=== PATIENT | male | born 1955 | race Caucasian/White ===

== ENCOUNTER → 2018-01-18 10:39 | Outpatient (CLI) | payer BC, SELFPAY ==
--- NOTE | 2018-01-18 10:49 | XR_ITS ---
XR hand RT min 3V HISTORY: Arthritis, pain ITS.REASON: PAIN IN FINGER ORDERING PHYSICIAN: Hardeep Stevens MD PATIENT AGE: 62 years COMPARISON: None FINDINGS: No fracture or dislocation. No lytic or blastic change. There is normal mineralization.. The joint spaces are well-preserved. No significant degenerative/arthritic changes. No erosive changes evident.. IMPRESSION: Negative, no acute finding
--- NOTE | 2018-01-18 10:49 | XR_ITS ---
XR shoulder LT min 2V HISTORY: ITS.REASON: LT SHOULDER PAIN ORDERING PHYSICIAN: Hardeep Stevens MD PATIENT AGE: 62 years Comparison: None FINDINGS: No fracture or dislocation. No lytic or blastic change. There is normal mineralization. The joint spaces are well-preserved. No significant degenerative/arthritic changes. No erosive changes evident. IMPRESSION: Negative, no acute finding
--- NOTE | 2018-01-18 10:49 | XR_ITS ---
XR hand LT min 3V HISTORY: Arthritis, pain ITS.REASON: PAIN IN FINGERS ORDERING PHYSICIAN: Hardeep Stevens MD PATIENT AGE: 62 years COMPARISON: None FINDINGS: No fracture or dislocation. No lytic or blastic change. There is normal mineralization.. The joint spaces are well-preserved. No significant degenerative/arthritic changes. No erosive changes evident.. IMPRESSION: Negative, no acute finding
== END ==
PROVIDERS: PCP Family Medicine; Visit Provider Family Medicine
DX: M25.512 Pain in left shoulder (principal); M79.646 Pain in unspecified finger(s)
CPT/HCPCS: 73030; 73130

== ENCOUNTER → 2022-06-02 10:48 | Outpatient (CLI) | payer MEDICARE, BC, SELFPAY ==
[2022-06-02 11:34] LABS: Basophils # 0.1 K/mm3 (0-0.2); Basophils % 0.9 % (0.1-2.0); Eosinophils # 0.3 K/mm3 (0.0-0.4); Eosinophils % 5.9 % (0.1-12.0); Hematocrit 48.8 % (42.0-52.0); Hemoglobin 15.7 g/dL (14.1-18.0); Lymphocytes # 1.6 K/mm3 (0.7-4.5); Lymphocytes % 28.5 % (10-50); Mean Corpuscular HGB Conc 32.1 g/dL (31.8-35.4); Mean Corpuscular Hemoglobin 31.3 pg (27.0-31.2); Mean Corpuscular Volume 97.5 fl (80-94); Mean Platelet Volume 7.8 fl (7.4-10.4); Monocytes # 0.5 K/mm3 (0.1-1.0); Monocytes % 8.4 % (1.7-9.3); Neutrophils # 3.2 K/mm3 (1.8-7.8); Neutrophils % 56.4 % (37.0-80.0); Platelet Count 250 K/mm3 (142-424); Red Blood Count 5.01 M/mm3 (4.60-6.20); Red Cell Distribution Width 13.6 % (11.5-17.5); White Blood Count 5.6 K/mm3 (4.8-10.8)
[2022-06-02 12:05] LABS: Erythrocyte Sedimentation Rate 12 mm/hr (0-20)
[2022-06-02 12:06] LABS: Alanine Aminotransferase 22 U/L (12-78); Albumin Level 4.1 g/dl (3.5-5.0); Albumin/Globulin Ratio 1.5 (1.1-1.8); Alkaline Phosphatase 72 U/L (38-126); Anion Gap 7.1 mEq/L (5-15); Aspartate Amino Transferase 40 U/L (17-59); Bilirubin,Total 0.7 mg/dl (0.2-1.3); Blood Urea Nitrogen 7 mg/dl (9-20); Carbon Dioxide 30 mmol/L (22.0-30.0); Chloride 106 mmol/L (98-107); Estimated Glomerular Filt Rate 134 ml/min (>60); GFR (African American) 163 ML/MIN (>60); Globulin 2.7 g/dL (1.3-3.2); Glucose 78 mg/dl (74-100); Potassium 4.1 mmoL/L (3.5-5.1); Sodium 139 mmol/L (136-145); Total Protein,Serum 6.8 g/dl (6.3-8.2)
[2022-06-02 12:11] LABS: C-Reactive Protein 0.6 mg/L (0-4)
== END ==
PROVIDERS: PCP Family Medicine; Visit Provider Nurse Practitioner Family
DX: M05.9 Rheumatoid arthritis with rheumatoid factor, unspecified (principal); Z51.81 Encounter for therapeutic drug level monitoring
CPT/HCPCS: 36415; 80053; 85025; 85651; 86140

== ENCOUNTER 2023-08-24 08:54 | Outpatient (CLI) | payer MEDICARE, BC, SELFPAY ==
[2023-08-24 09:30] LABS: Basophils % 0.8 % (0.1-2.0); Eosinophils # 0.1 K/mm3 (0.0-0.4); Eosinophils % 2.4 % (0.1-12.0); Hematocrit 42.6 % (42.0-52.0); Hemoglobin 13.8 g/dL (14.1-18.0); Lymphocytes # 1.7 K/mm3 (0.7-4.5); Lymphocytes % 33.8 % (10-50); Mean Corpuscular HGB Conc 32.5 g/dL (31.8-35.4); Mean Corpuscular Hemoglobin 32.5 pg (27.0-31.2); Mean Corpuscular Volume 100.3 fl (80-94); Mean Platelet Volume 7.9 fl (7.4-10.4); Monocytes # 0.4 K/mm3 (0.1-1.0); Monocytes % 8.3 % (1.7-9.3); Neutrophils # 2.7 K/mm3 (1.8-7.8); Neutrophils % 54.6 % (37.0-80.0); Platelet Count 215 K/mm3 (142-424); Red Blood Count 4.25 M/mm3 (4.60-6.20); Red Cell Distribution Width 14.1 % (11.5-17.5)
[2023-08-24 09:50] LABS: Alanine Aminotransferase 16 U/L (12-78); Albumin Level 3.6 g/dl (3.5-5.0); Albumin/Globulin Ratio 1.4 (1.1-1.8); Alkaline Phosphatase 78 U/L (38-126); Anion Gap 6.1 mEq/L (5-15); Aspartate Amino Transferase 40 U/L (17-59); Bilirubin,Total 0.6 mg/dl (0.2-1.3); Blood Urea Nitrogen 7 mg/dl (9-20); Calcium 9.3 mg/dl (8.4-10.2); Carbon Dioxide 29 mmol/L (22.0-30.0); Chloride 110 mmol/L (98-107); Estimated Glomerular Filt Rate 134 ml/min (>60); GFR (African American) 162 ML/MIN (>60); Globulin 2.5 g/dL (1.3-3.2); Glucose 86 mg/dl (74-100); Potassium 3.1 mmoL/L (3.5-5.1); Sodium 142 mmol/L (136-145); Total Protein,Serum 6.1 g/dl (6.3-8.2)
[2023-08-24 09:55] LABS: C-Reactive Protein 1.7 mg/L (0-4)
[2023-08-24 10:02] LABS: Erythrocyte Sedimentation Rate 23 mm/hr (0-20)
== END 2023-08-24 23:59 | disposition home or self-care (01) ==
LOC: LAB 08:55
PROVIDERS: PCP Family Medicine; Visit Provider Nurse Practitioner Family
DX: M05.79 Rheumatoid arthritis with rheumatoid factor of multiple sites without organ or systems involvement (principal); Z79.899 Other long term (current) drug therapy
CPT/HCPCS: 36415; 80053; 85025; 85651; 86140

== ENCOUNTER 2023-10-06 08:44 | Outpatient (CLI) | payer MEDICARE, BC, SELFPAY ==
--- NOTE | 2023-10-06 08:46 | CA_ITS ---
APPROVED REPORT EXAM: Comprehensive 2D, Doppler, and color-flow Echocardiogram Skin Washer: Viviana Alvarez RVT Ht: 5 ft 8 in Wt: 112lbs BSA: 1.60 BP: 160/76 mmHg Indications: A-FIB,HTN 2D Dimensions LA Volume 24.10 mL LA Volume Index 15.06 mL/m2 (M/F) 16-34 M-Mode Dimensions RVDd 1.61 cm (0.9-2.6) LA Diam 3.87 cm (1.9-4.0) LVDd 4.58 cm (3.5-5.7) LVDs 3.26 cm (3.5-5.7) IVSd 0.57 cm (0.6-1.1) PWd 0.57 cm (0.6-1.1) EF (Teich) 55.60% FS 28.80% EDV (Teich) 96.30 mL TAPSE 1.79 (<1.7) ESV (Teich) 42.80 mL LV Diastology E Decel Time 200 (160-240 msec) E/A Ratio 4.1 Aortic Valve CARLITO Index 1.98 cm2/m2 AoV Peak Young. 100.0 (50-130 cm/s) AO Peak GR. 4.00 mmHg AO Mean GR. 2.20 (<5 mmHg) AO VTI 17.6 (18-25 cm) CARLITO (VTI) 3.25 (2.5-4.5 cm2) Mitral Valve MV E Max Young. 99.0 (40-130 cm/s) MV A Velocity 24.0 (40-130 cm/s) E/A Ratio 4.10 MV PHT 59.0 ms Pulmonary Valve PV Peak Velocity 77.0 (50-150 cm/s) Tricuspid Valve TR P. Velocity 294.00 cm/s RAP Estimate 10.00 mmHg RVSP 44.50 mmHg Left Ventricle The left ventricle is normal size. The left ventricular systolic function is normal. The left ventricular ejection fraction is within the normal range. Proximal septal thickening is noted. There is normal LV segmental wall motion. Diastolic function is indeterminate. LVEF is 55%. Right Ventricle Right ventricle is mildly dilated. Right ventricle is mildly hypokinetic. Atria The left atrium size is normal. The right atrium size is normal. There is no Doppler evidence of interatrial shunt. Aortic Valve The aortic valve is mildly thickened. There is no aortic valvular stenosis. Trace aortic regurgitation. Mitral Valve The mitral valve is mildly thickened. No evidence of mitral valve stenosis. Moderate mitral regurgitation. Tricuspid Valve The tricuspid valve leaflets are thin and pliable. Mild to moderate tricuspid regurgitation. RVSP is 40-45 mmHg. Pulmonic Valve The pulmonary valve is normal in structure. Trace pulmonic regurgitation. Great Vessels The aortic root is normal in size. The ascending aorta is not well-visualized. IVC is normal in size and collapses >50% with inspiration. Pericardium There is no pericardial effusion. Other Information Study Quality: Fair Conclusion Normal LV systolic function. Mild RV dilation with mild reduction in RV function. Moderate MR. Mild to moderate TR. Elevated RVSP 40-45 mmHg. Electronically signed by : Tiffany Manzo MD 10/12/2023 22:31:23
== END 2023-10-06 23:59 | disposition home or self-care (01) ==
LOC: RT 08:44
PROVIDERS: PCP Family Medicine; Visit Provider Family Medicine
DX: I34.0 Nonrheumatic mitral (valve) insufficiency (principal); I36.1 Nonrheumatic tricuspid (valve) insufficiency; I48.91 Unspecified atrial fibrillation; R94.31 Abnormal electrocardiogram [ECG] [EKG]
CPT/HCPCS: 93306

== ENCOUNTER 2024-01-15 10:23 | Outpatient (CLI) | payer MEDICARE, BC, SELFPAY ==
--- OUTSIDE RECORDS SUMMARY | 2024-01-15 10:28 | XMS_ITS | Encounter Summary ---
Author Organization [facility] Address [address] [id number] Care Team Providers Care Abrasives Sales Representative Name Role Phone Hardeep Stevens MD Primary Care Provider + Reason for Visit * Reason Comments FURNACE FITTER / establish PCP COPD Hyperlipidemia elevated BP w/o dx of HTN Encounter Details Date Type Department Care Team (Late st Contact Info) Description 09/30/2021 11:00 AM EDT Office Visit [facility] [address] [place] [address] Hardeep Stevens MD [address] [place] [address] Initial Medicare annual wellness visit (Primary Dx); Pulmonary emphysema, unspecified emphysema type; 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; Hypercholesterolemia; BMI less than 19,adult; Negative depression screening; Screening declined by patient; Elevated blood pressure reading without diagnosis of hypertension Social History Tobacco Use Types Packs/Day Years Used Date Smoking Tobacco: Every Day Cigarettes Smokeless Tobacco: Never Tobacco Cessation:Ready to Q uit: No Alcohol Use Standard Drinks/Week Comments Yes 0 (1 standard drink = 0.6 oz pur e alcohol) PHQ-2 Answer Date Recorded Retired PHQ-9: Brief Depression Severity Measure Score 0 09/30/2021 Sex and Gender Information Value Date Recorded Sex Assigned at Not on file Legal Sex Male 11:48 AM EDT Gender Identity Not on file Sexual Orientation Not on file documented as of this encounter Last Filed Vital Signs Vital Sign Reading Time Taken Comments Blood Pressure 180/80 09/30/2021 10:46 AM EDT Pulse 90 09/30/2021 10:46 AM EDT Temperature 36.8 ??C (98.2 ??F) 09/30/2021 10:46 AM E DT Respiratory Rate 20 09/30/2021 10:46 AM EDT Oxygen Saturation 95% 09/30/2021 10:46 AM EDT Inhaled Oxygen Concentration - - Weight 48.4 kg (106 lb 9.6 oz) 09/30/2021 10:46 AM EDT Height 172.7 cm (5' 8 ) 09/30/2021 10:46 AM EDT Body Mass Index 16.21 09/30/2021 10:46 AM EDT documented in this encounter Patient Instructions * Attachments The following attachments cannot be sent through Care Everywhere. * Preventive Care 65 Years and Older Male ([place]) documented in this encounter Progress Notes * Hardeep Stevens MD - 09/30/2021 11:00 AM EDT The ABCs of the Annual Wellness Visit Initial Medicare Wellness Visit Chief Complaint Patient presents with ??? FURNACE FITTER / establish PCP ??? COPD ??? Hyperlipidemia ??? elevated BP w/o dx of HTN Subjective History of Present Illness: Umang Fernandes is a 66 y.o. male who presents for an Initial Medicare Wellness Visit. The following portions of the patient's history were reviewed and updated as appropriate: allergies, current medications, past family history, past medical history, past social history, past surgical history and problem list. Compared to one year ago, the patient feels his physical health is the same. Compared to one year ago, the patient feels his mental health is the same. Recent Hospitalizations: He was not admitted to the hospital during the last year. Current Medical Providers: Patient Care Team: Hardeep Stevens MD as PCP - General (Family Medicine) Josse Perez, DO as Consulting Physician (Rheumatology) Outpatient Medications Prior to Visit Medication Sig Dispense Refill ??? leflunomide (ARAVA) 20 MG tablet ??? simvastatin (ZOCOR) 40 MG tablet ??? Symbicort 160-4.5 MCG/ACT inhaler Inhale 2 puffs 2 (Two) Times a Day. No facility-administered medications prior to visit. No opioid medication identified on active medication list. I have reviewed chart for other potential high risk medication/s and harmful drug interactions in the elderly. Aspirin is not on active medication list. Aspirin use is not indicated based on review of current medical condition/s. Risk of harm outweighs potential benefits. . Patient Active Problem List Diagnosis ??? Screening declined by patient ??? Pulmonary emphysema (HCC) ??? 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 Hypercholesterolemia Advance Care Planning Advance Directive is not on file. ACP discussion was held with the patient during this visit. Patient has an advance directive (not in EMR), copy requested. Objective Vitals: 09/30/21 1046 BP: 180/80 Pulse: 90 Resp: 20 Temp: 98.2 ??F (36.8 ??C) SpO2: 95% Weight: 48.4 kg (106 lb 9.6 oz) Height: 172.7 cm (68 ) PainSc: 0-No pain Estimated body mass index is 16.21 kg/m?? as calculated from the following: Height as of this encounter: 172.7 cm (68 ). Weight as of this encounter: 48.4 kg (106 lb 9.6 oz). BMI is below normal parameters (malnutrition). Recommendations: none (medical contraindication) Does the patient have evidence of cognitive impairment? No Physical Exam HEALTH RISK ASSESSMENT Smoking Status: Social History Tobacco Use Smoking Status Current Every Day Smoker ??? Types: Cigarettes Smokeless Tobacco Never Used Alcohol Consumption: Social History Substance and Sexual Activity Alcohol Use Yes Fall Risk Screen: VINNIE Fall Risk Assessment was completed, and patient is at LOW risk for falls.Assessment completed on:09/30/2021 Depression Screen: PHQ-2/PHQ-9 Depression Screening 09/30/2021 Little Interest or Pleasure in Doing Things 0-->not at all Feeling Down, Depressed or Hopeless 0-->not at all PHQ-9: Brief Depression Severity Measure Score 0 Health Habits and Functional and Cognitive Screening: Functional & Cognitive Status 09/30/2021 Do you have difficulty preparing food and eating? No Do you have difficulty bathing yourself, getting dressed or grooming yourself? No Do you have difficulty using the toilet? No Do you have difficulty moving around from place to place? No Do you have trouble with steps or getting out of a bed or a chair? No Current Diet Limited Junk Food Dental Exam Not up to date Eye Exam Not up to date Exercise (times per week) 0 times per week Current Exercises Include Gardening Do you need help using the phone? No Are you deaf or do you have serious difficulty hearing? No Do you need help with transportation? No Do you need help shopping? No Do you need help preparing meals? No Do you need help with housework? No Do you need help with laundry? No Do you need help taking your medications? No Do you need help managing money? No Do you ever drive or ride in a car without wearing a seat belt? No Have you felt unusual stress, anger or loneliness in the last month? No Who do you live with? Spouse If you need help, do you have trouble finding someone available to you? No Do you have difficulty concentrating, remembering or making decisions? No Age-appropriate Screening Schedule: Refer to the list below for future screening recommendations based on patient's age, sex and/or medical conditions. Orders for these recommended tests are listed in the plan section. The patient has been provided with a written plan. Health Maintenance Topic Date Due ??? TDAP/TD VACCINES (1 - Tdap) Never done ??? ZOSTER VACCINE (2 of 3) 08/08/2015 ??? LIPID PANEL Never done ??? INFLUENZA VACCINE 11/09/2021 Assessment & Plan CMS Preventative Services Quick Reference Risk Factors Identified During Encounter Alcohol Misuse Chronic Pain Immunizations Discussed/Encouraged (specific Immunizations; Tdap The above risks/problems have been discussed with the patient. Follow up actions/plans if indicated are seen below in the Assessment/Plan Section. Pertinent information has been shared with the patient in the After Visit Summary. Diagnoses and all orders for this visit: 1. Initial Medicare annual wellness visit (Primary) 2. Pulmonary emphysema, unspecified emphysema type (HCC) Comments: Stable. Refill Symbicort for 1 year Orders: - Symbicort 160-4.5 MCG/ACT inhaler; Inhale 2 puffs 2 (Two) Times a Day. Dispense: 3 each; Refill: 3 3. 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 Follow-up with rheumatology every 6 months. 4. Hypercholesterolemia Comments: Lipid panel ordered. Refilled simvastatin for 1 year Orders: - simvastatin (ZOCOR) 40 MG tablet; Take 1 tablet by mouth Every Night. Dispense: 90 tablet; Refill: 3 - Lipid Panel 5. BMI less than 19,adult 6. Negative depression screening Comments: PHQ 2 score-0 7. Screening declined by patient 8. Elevated blood pressure reading without diagnosis of hypertension Comments: The patient does not see this as a problem. Declines treatment Other orders - Cancel: Tdap Vaccine Greater Than or Equal To 7yo IM Follow Up: Return in about 1 year (around 09/30/2022). An After Visit Summary and PPPS were made available to the patient. documented in this encounter Plan of Treatment Upcoming Encounters Date Type Department Care Team (Late st Contact Info) Description 02/05/2024 10:15 AM EST Office Visit [facility] [address] [place] [phone] Hardeep Stevens MD [address] [place] [address] 06/14/2024 10:45 AM EDT Office Visit [facility] [address] [address] Josse Perez DO [address] [facility] [address] [place] [phone] documented as of this encounter Procedures Procedure Name Priority Date/Time Associated Diagnosis Comments LIPID PANEL Routine 09/30/2021 11:18 AM EDT Hypercholesterolemia documented in this encounter Results * (ABNORMAL) Lipid Panel (09/30/2021 11:18 AM EDT) Total Cholesterol 207(H) 0 - 200 mg/dL [facility] Comment: Cholesterol Reference Ranges (U.S. Department of Health and Human Services ATP III Classifications) Desirable ?<200 mg/dL Borderline High ?200-239 mg/dL High Risk ?>240 mg/dL Triglyceride Reference Ranges (U.S. Department of Health and Human Services ATP III Classifications) Normal ? <150 mg/dL Borderline High ??150-199 mg/dL High ? 200-499 mg/dL Very High ?>500 mg/dL HDL Reference Ranges (U.S. Department of Health and Human Services ATP III Classifications) Low ? <40 mg/dl (major risk factor for CHD) High ?>60 mg/dl ('negative' risk factor for CHD) LDL Reference Ranges (U.S. Department of Health and Human Services ATP III Classifications) Optimal ?<100 mg/dL Near Optimal ? 100-129 mg/dL Borderline High ??130-159 mg/dL High ? 160-189 mg/dL Very High ?>189 mg/dL Triglycerides 59 0 - 150 mg/dL [facility] HDL Cholesterol 150(H) 40 - 60 mg/dL [facility] VLDL Cholesterol Jorge Alberto 11 5 - 40 mg/dL [facility] LDL Chol Calc (NIH) 46 0 - 100 mg/dL [facility] Blood 09/30/2021 11:1 8 AM EDT 09/30/2021 Narrative [facility] (AMBULATORY) - 10/01/2021 3:07 AM EDT Performed at: ??[address] ??[id number] Detention Worker: Chele De La Cruz MD, Phone: ??[phone] us Hardeep Stevens MD LAB BLOOD ORDERABLES Fin al Result [facility] (AMBULATORY) [address] [place] [address], [place] [phone] [facility] [address] [place] [address], [place] [phone] documented in this encounter Visit Diagnoses Diagnosis Initial Medicare annual wellness visit- Primary Pulmonary emphysema, unspecified emphysema type 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
--- OUTSIDE RECORDS SUMMARY | 2024-01-15 10:28 | XMS_ITS | Encounter Summary ---
Author Organization [facility] Address [address] [place] [address] Care Team Providers Care Rn Surgery Name Role Phone Hardeep Stevens MD Primary Care Provider + Reason for Visit * Reason Comments Med Refill Encounter Details Date Type Department Care Team (Late st Contact Info) Description 10/26/2023 Refill [facility] [address] [place] [address] Hardeep Stevens MD [address] [place] [address] Atrial fibrillation with rapid ventricular response Social History Tobacco Use Types Packs/Day Years Used Date Smoking Tobacco: Every Day Cigarettes Smokeless Tobacco: Never Alcohol Use Standard Drinks/Week Comments Yes 0 (1 standard drink = 0.6 oz pur e alcohol) BEER, CONSUMED DAILY PHQ-2 Answer Date Recorded Retired PHQ-9: Brief Depression Severity Measure Score 0 10/02/2022 PHQ-2 Answer Date Recorded Retired PHQ-9: Brief Depression Severity Measure Score 0 09/28/2023 Sex and Gender Information Value Date Recorded Sex Assigned at Not on file Legal Sex Male 11:48 AM EDT Gender Identity Not on file Sexual Orientation Not on file documented as of this encounter Plan of Treatment Upcoming Encounters Date Type Department Care Team (Late st Contact Info) Description 02/05/2024 10:15 AM EST Office Visit [facility] [address] [place] [address] Hardeep Stevens MD [address] [place] [address] 06/14/2024 10:45 AM EDT Office Visit [facility] [address] [facility] [address] [place] [phone] Josse Perez DO [address] [facility] [address] [place], [place] [phone] documented as of this encounter Visit Diagnoses Diagnosis Atrial fibrillation with rapid ventricular response documented in this encounter Care Teams Rn Surgery Relationship Specialty Start Date End Date Hardeep Stevens MD [address] [place] [address] PCP - General Family Medicine 09/30/21 documented as of this encounter
--- OUTSIDE RECORDS SUMMARY | 2024-01-15 10:28 | XMS_ITS | Encounter Summary ---
Author Organization [facility] Address [address] [place] [address] Care Team Providers Care Econometrics Professor Name Role Phone Hardeep Stevens MD Primary Care Provider + Reason for Visit * Reason Comments Med Refill Encounter Details Date Type Department Care Team (Late Contact Info) Description 08/24/2022 Refill [facility] [address] [place] [address] Hardeep Stevens MD [address] [place] [address] Hypercholesterolemia; Pulmonary emphysema, unspecified emphysema type Social History Tobacco Use Types Packs/Day Years [...] Description 02/05/2024 10:15 AM EST Office Visit [facility] [address] [place] [address] Hardeep Stevens MD [address] [place] [address] 06/14/2024 10:45 AM EDT Office Visit [facility] [address] [facility] [address] [place] [address] Josse Perez DO 3000 [facility] [address] [place], [place] [phone] documented as of this encounter Visit Diagnoses Diagnosis Hypercholesterolemia Pure hypercholesterolemia Pulmonary emphysema, unspecified emphysema type documented in this encounter Care Teams Econometrics Professor Relationship Specialty Start Date End Date Hardeep Stevens MD [address] [place] [address] PCP - General Family Medicine 09/30/21 documented as of this encounter
--- OUTSIDE RECORDS SUMMARY | 2024-01-15 10:28 | XMS_ITS | Encounter Summary ---
Author Organization [facility] Address [address] [place] [address] Care Team Providers Care Phlebotomy Technologist Name Role Phone Hardeep Stevens MD Primary Care Provider + Reason for Referral * Diagnostic Imaging (Routine) - Closed Specialty Diagnoses / Procedures Referred By Contac t Referred To Contact Diagnoses Atrial fibrillation with rapid ventricular response Abnormal electrocardiogram (ECG) (EKG) Procedures Adult Transthoracic Echo Complete W/ Cont if Necessary Per Protocol GA ECHO TTHRC R-T 2D W/WOM-MODE COMPL SPEC&COLR D GA ECHO TRANSTHORC R-T 2D W/WO M-MODE REC F-UP/LMTD Hardeep Stevens MD [address] [facility] [place] [address] Phone: tel: fax: [facility] OUT[facility]ICAL [facility]ER[facility] [address] [place] [address] Phone: tel: Referral ID Status Reason Start Date Expiration Date Visits Re quested Visits Authorized [id number] Closed 09/28/2023 09/27/2024 1 0 Reason for Visit * Reason Comments Follow-up Emphysema Hyperlipidemia Encounter Details Date Type Department Care Team (Latest Contact Info) Description 09/28/2023 10:45 AM EDT Office Visit [facility] [address] [place] [phone] Hardeep Stevens MD [address] [facility] [place] [address] Pulmonary emphysema, unspecified emphysema type (Primary Dx); Atrial fibrillation with rapid ventricular response; Hypercholesterolemia; Alcoholism; Anemia, unspecified type; Pulmonary emphysema, unspecified emphysema type; Abnormal electrocardiogram (ECG) (EKG); Hypokalemia Social History Tobacco Use Types Packs/Day Years [...] Sign Reading Time Taken Comments Blood Pressure 160/100 09/28/2023 10:43 AM EDT Pulse 84 09/28/2023 10:43 AM EDT Temperature 36.7 ??C (98 ??F) 09/28/2023 10:43 AM EDT Respiratory Rate 24 09/28/2023 10:43 AM EDT Oxygen Saturation 95% 09/28/2023 10:43 AM EDT Inhaled Oxygen Concentration - - Weight 50.5 kg (111 lb 6.4 oz) 09/28/2023 10:43 AM EDT Height 172.7 cm (5' 7.99 ) 09/28/2023 10:43 AM E DT Body Mass Index 16.94 09/28/2023 10:43 AM EDT documented in this encounter Progress Notes * Hardeep Stevens MD - 09/28/2023 12:27 PM EDTAssociated Problem(s): Atrial fibrillation with rapid ventricular response Condition is newly identified. Emphysema and alcoholism are risk factors for A- fib and patient was made aware. Labs will be drawn to assess thyroid function as well as electrolyte abnormalities considering he has prior hypokalemia. Echocardiogram will be arranged at [facility]. Patient declined referral to cardiology. He would prefer medical management. [id number] 2 score of 1. Patient has no documented history of hypertension * Hardeep Stevens MD - 09/28/2023 10:45 AM EDTAssociated Order(s): ECG 12 Lead Post-Procedure Diagnose(s): Atrial fibrillation with rapid ventricular response Chief Complaint Patient presents with Follow-up Emphysema Hyperlipidemia Subjective Umang Fernandes is a 68 y.o. who presents for maintenance visit of his COPD and hypercholesterolemia.He takes his medicines as prescribed. 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 He was encouraged to follow-up on these. Patient continues to smoke cigarettes. He drinks a half a pint of vodka per day. He denies nausea or vomiting. Denies diarrhea. He denies shortness of breath above baseline or chest pain The following portions of the patient's history were reviewed and updated as appropriate: allergies, current medications, past family history, past medical history, past social history, past surgicalhistory, and problem list. Review of Systems Objective Vital Signs: BP 160/100 Pulse 84 Temp 98 ??F (36.7 ??C) Resp 24 Ht 172.7 cm (67.99 ) Wt 50.5 kg (111 lb 6.4 oz) SpO2 95% BMI 16.94 kg/m?? Physical Exam Constitutional: Appearance: Normal appearance. HENT: Head: Normocephalic and atraumatic. Right Ear: Tympanic membrane and ear canal normal. Left Ear: Tympanic membrane and ear canal normal. Nose: Nose normal. Mouth/Throat: Mouth: Mucous membranes are moist. Pharynx: Oropharynx is clear. Eyes: Conjunctiva/sclera: Conjunctivae normal. Cardiovascular: Rate and Rhythm: Tachycardia present. Rhythm irregular. Heart sounds: Normal heart sounds. No murmur heard. Pulmonary: Effort: Pulmonary effort is normal. No respiratory distress. Breath sounds: Normal breath sounds. Musculoskeletal: Cervical back: Normal range of motion and neck supple. No tenderness. Lymphadenopathy: Cervical: No cervical adenopathy. Skin: General: Skin is warm and dry. Findings: Bruising present. Neurological: Mental Status: He is alert. Psychiatric: Mood and Affect: Mood normal. Result Review ECG 12 Lead Date/Time: 09/28/2023 11:52 AM Performed by: Hardeep Stevens MD Authorized by: Hardeep Stevens MD Comparison: not compared with previous ECG Rhythm: atrial fibrillation Rate: tachycardic QRS axis: right Other findings: T wave abnormality Clinical impression: abnormal EKG Comments: A-fib with RVR Assessment and Plan Diagnoses and all orders for this visit: 1. Pulmonary emphysema, unspecified emphysema type (Primary) Comments: Stable. Refill Symbicort for 1 year Overview: Stable. Refill Symbicort for 1 year Orders: - Symbicort 160-4.5 MCG/ACT inhaler; Inhale 2 puffs 2 (Two) Times a Day. Dispense: 3 each; Refill: 3 - albuterol sulfate HFA 108 (90 Base) MCG/ACT inhaler; Inhale 2 puffs Every 4 (Four) Hours As Needed for Wheezing. Dispense: 18 g; Refill: 2 2. Atrial fibrillation with rapid ventricular response Assessment & Plan: Condition is newly identified. Emphysema and alcoholism are risk factors for A- fib and patient was made aware. Labs will be drawn to assess thyroid function as well as electrolyte abnormalities considering he has prior hypokalemia. Echocardiogram will be arranged at [facility]. Patient declined referral to cardiology. He would prefer medical management. [id number] 2 score of 1. Patient has no documented history of hypertension Orders: - dilTIAZem CD (Cardizem CD) 180 MG 24 hr capsule; Take 1 capsule by mouth Daily. Dispense: 30 capsule; Refill: 0 - TSH Rfx On Abnormal To Free T4 - Comprehensive Metabolic Panel - Adult Transthoracic Echo Complete W/ Cont if Necessary Per Protocol; Future - ECG 12 Lead 3. Hypercholesterolemia Comments: Stable. Statin changed to rosuvastatin due to interaction with diltiazem. Repeat lipid panel Overview: Lipid panel ordered. Refilled simvastatin for 1 year Orders: - Lipid Panel 4. Alcoholism Comments: Chronic. Unchanged. Recommend reduction Orders: - Comprehensive Metabolic Panel 5. Anemia, unspecified type Comments: Newly identified. Anemia labs ordered Orders: - Vitamin B12 - Ferritin - CBC & Differential - Comprehensive Metabolic Panel 6. Pulmonary emphysema, unspecified emphysema type Comments: RX for Albuterol sulfate sent to pharmacy Overview: Stable. Refill Symbicort for 1 year Orders: - Symbicort 160-4.5 MCG/ACT inhaler; Inhale 2 puffs 2 (Two) Times a Day. Dispense: 3 each; Refill: 3 - albuterol sulfate HFA 108 (90 Base) MCG/ACT inhaler; Inhale 2 puffs Every 4 (Four) Hours As Needed for Wheezing. Dispense: 18 g; Refill: 2 7. Abnormal electrocardiogram (ECG) (EKG) - Adult Transthoracic Echo Complete W/ Cont if Necessary Per Protocol; Future 8. Hypokalemia Comments: Repeat BMP ordered. Likely related to alcoholism or excessive Rima use Other orders - rosuvastatin (Crestor) 10 MG tablet; Take 1 tablet by mouth Daily. Dispense: 90 tablet; Refill: 3 Follow Up Return in about 4 weeks (around 10/26/2023) for Recheck Atrial Fibrillation, Medicare Wellness. Patient was given instructions and counseling regarding his condition or for health maintenance advice. Please see specific information pulled into the AVS if appropriate. documented in this encounter Plan of Treatment Upcoming Encounters Date Type Department Care Team (Late st Contact Info) Description 02/05/2024 10:15 AM EST Office Visit [facility] [address] [place] [phone] Hardeep Stevens MD [address] [place] [address] 06/14/2024 10:45 AM EDT Office Visit [facility] R[facility] [address] [place] [phone] Josse Perez DO [address] [place] [address] [place] [address] [place] [id number] Scheduled Orders Name Type Priority Associated Diagnoses Orde r Schedule Adult Transthoracic Echo Complete W/ Cont if Necessary Per Protocol Echocardiography Routine Atrial fibrillation with rapid ventricular response Abnormal electrocardiogram (ECG) (EKG) Expected: 10/03/2023, Expires: 09/27/2024 documented as of this encounter Procedures Procedure Name Priority Date/Time Associated Diagnosis Comments ECG 12-LEAD Routine 09/28/2023 11:52 AM EDT Atrial fibrillation with rapid ventricular response TSH RFX ON ABNORMAL TO FREE T4 Routine 09/28/2023 11:32 AM EDT Atrial fibrillation with rapid ventricular response CBC AND DIFFERENTIAL Routine 09/28/2023 11:32 AM EDT Anemia, unspecified type FERRITIN Routine 09/28/2023 11:32 AM EDT Anemia, unspecified type VITAMIN B12 Routine 09/28/2023 11:32 AM EDT Anemia, unspecified type LIPID PANEL Routine 09/28/2023 11:32 AM EDT Hypercholesterolemia COMPREHENSIVE METABOLIC PANEL Routine 09/28/2023 11:32 AM EDT Atrial fibrillation with rapid ventricular response Alcoholism Anemia, unspecified type documented in this encounter Results * ECG 12-LEAD (09/28/2023 11:52 AM EDT) Narrative ECG - 09/28/2023 11:52 AM EDT Hardeep Stevens MD ? 09/28/2023 12:55 PM ECG 12 Lead Date/Time: 09/28/2023 11:52 AM Performed by: Hardeep Stevens MD Authorized by: Hardeep Stevens MD ??Comparison: not compared with previous ECG Rhythm: atrial fibrillation Rate: tachycardic QRS axis: right Other findings: T wave abnormality Clinical impression: abnormal EKG Comments: A-fib with RVR us Hardeep Stevens MD ECG ORDERABLES Final Re sult ECG * (ABNORMAL) Lipid Panel (09/28/2023 11:32 AM EDT) Total Cholesterol 209(H) 100 - 199 mg/dL [facility] Triglycerides 65 0 - 149 mg/dL [facility] HDL Cholesterol 134 >39 mg/dL [facility] VLDL Cholesterol Jorge Alberto 12 5 - 40 mg/dL [facility] LDL Chol Calc (NIH) 63 0 - 99 mg/dL [facility] Blood 09/28/2023 11:3 2 AM EDT 09/28/2023 Narrative [facility] (AMBULATORY) - 09/29/2023 12:11 PM EDT Performed at: ??01 - [facility] [address] ??[id number] Privacy Officer: Steven Santiago PhD, Phone: ??[phone] Patient Fasting: ??Y us Hardeep Stevens MD LAB BLOOD ORDERABLES Fin al Result [facility] [address] [place] [address], [facility] [address] [place] [address], [place] [phone] * (ABNORMAL) Comprehensive Metabolic Panel (09/28/2023 11:32 AM EDT) Glucose 77 70 - 99 mg/dL [facility] BUN 5(L) 8 - 27 mg/dL [facility] Creatinine 0.65(L) 0.76 - 1.27 mg/dL [facility] EGFR Result 103 >59 mL/min/1.7 3 [facility] BUN/Creatinine Ratio 8(L) 10 - 24 [facility] Sodium 144 134 - 144 mmol/L [facility] Potassium 3.9 3.5 - 5.2 mmol/L [facility] Chloride 103 96 - 106 mmol/L [facility] Total CO2 24 20 - 29 mmol/L [facility] Calcium 9.4 8.6 - 10.2 mg/dL [facility] Total Protein 6.5 6.0 - 8.5 g/dL [facility] Albumin 4.2 3.9 - 4.9 g/dL [facility] Globulin 2.3 1.5 - 4.5 g/dL [facility] Total Bilirubin 0.6 0.0 - 1.2 mg/dL [facility] Alkaline Phosphatase 85 44 - 121 IU/L [facility] AST (SGOT) 34 0 - 40 IU/L [facility] ALT (SGPT) 16 0 - 44 IU/L [facility] Blood 09/28/2023 11:3 2 AM EDT 09/28/2023 Narrative [facility] ([facility]) - 09/29/2023 12:11 PM EDT Performed at: ??01 - [facility] [address] ??[id number] Privacy Officer: Steven Santiago PhD, Phone: ??[phone] Patient Fasting: ??Y Hardeep Stevens MD LAB BLOOD ORDERABLES Fin al Result [facility] ([facility]) [address] [place] [address], [facility] [address] [place] [address], * CBC & Differential (09/28/2023 11:32 AM EDT) WBC 6.0 3.4 - 10.8 x10E3/uL [facility] RBC 4.70 4.14 - 5.80 x10E6/uL [facility] Hemoglobin 14.9 13.0 - 17.7 g/dL [facility] Hematocrit 45.7 37.5 - 51.0 % [facility] MCV 97 79 - 97 fL [facility] MCH 31.7 26.6 - 33.0 pg [facility] MCHC 32.6 31.5 - 35.7 g/dL [facility] RDW 12.4 11.6 - 15.4 % [facility] Platelets 220 150 - 450 x10E3/uL [facility] Neutrophil Rel % 59 Not Estab. % [facility] Lymphocyte Rel % 26 Not Estab. % [facility] Monocyte Rel % 12 Not Estab. % [facility] Eosinophil Rel % 2 Not Estab. % [facility] Basophil Rel % 1 Not Estab. % [facility] Neutrophils Absolute 3.5 1.4 - 7.0 x10E3/uL [facility] Lymphocytes Absolute 1.6 0.7 - 3.1 x10E3/uL [facility] Monocytes Absolute 0.7 0.1 - 0.9 x10E3/uL [facility] Eosinophils Absolute 0.1 0.0 - 0.4 x10E3/uL [facility] Basophils Absolute 0.1 0.0 - 0.2 x10E3/uL [facility] Immature Granulocyte Rel % 0 Not Estab. % [facility] Immature Grans Absolute 0.0 0.0 - 0.1 x10E3/uL [facility] Blood 09/28/2023 11:3 2 AM EDT 09/28/2023 Narrative [facility] ([facility]) - 09/29/2023 12:11 PM EDT Performed at: ??01 - [address] ??[id number] Privacy Officer: Steven Santiago PhD, Phone: ??[phone] Patient Fasting: ??Y Hardeep Stevens MD LAB BLOOD ORDERABLES Fin al Result Performing Organization Address City/State/[facility] Co de Phone Number [facility] ([facility]) [address] [place] [address], [facility] [address] [place] [address], [place] [phone] * Ferritin (09/28/2023 11:32 AM EDT) Ferritin 219 30 - 400 ng/mL [facility] Blood 09/28/2023 11:3 2 AM EDT 09/28/2023 Narrative [facility] - 09/29/2023 12:11 PM EDT Performed at: ??01 - [facility] [address] ??[id number] Privacy Officer: Steven Santiago PhD, Phone: ??[phone] Patient Fasting: ??Y Hardeep Stevens MD LAB BLOOD ORDERABLES Fin al Result Performing Organization Address City/State/[facility] de Phone Number [facility] ([facility]) [address] [place] [address], [facility] [address] [place] [address], * Vitamin B12 (09/28/2023 11:32 AM EDT) Pathologist [facility] Vitamin B-12 324 232 - 1,245 pg/mL [facility] Blood 09/28/2023 11:3 2 AM EDT 09/28/2023 Narrative [facility] ([facility]) - 09/29/2023 12:11 PM EDT Performed at: ??01 - [address] ??[id number] Privacy Officer: Steven Santiago PhD, Phone: ??[phone] Patient Fasting: ??Y Hardeep Stevens MD LAB BLOOD ORDERABLES Fin al Result Performing Organization Address [facility] de Phone Number [facility] ([facility]) [address] [place] [address], [facility] [address] [place] [address], * TSH Rfx On Abnormal To Free T4 (09/28/2023 11:32 AM EDT) Pathologist [facility] TSH 0.914 0.450 - 4.500 uIU/mL [facility] Blood 09/28/2023 11:3 2 AM EDT 09/28/2023 Narrative [facility]) - 09/29/2023 12:11 PM EDT Performed at: ?? - [facility] [address] ??[id number] Privacy Officer: Steven Santiago PhD, Phone: ??[phone] Patient Fasting: ??Y Hardeep Stevens MD LAB BLOOD ORDERABLES Fin al Result Performing Organization Address [facility]/State/ZIP Co de Phone Number [facility]) [address] [place] [address], [facility] [address] [place] [address], documented in this encounter Visit Diagnoses Diagnosis Pulmonary emphysema, unspecified emphysema type- Primary Atrial fibrillation with rapid ventricular response Hypercholesterolemia Pure hypercholesterolemia Alcoholism Other and unspecified alcohol dependence, unspecified drinking behavior Anemia, unspecified type Abnormal electrocardiogram (ECG) (EKG) Hypokalemia Hypopotassemia documented in this encounter Care Teams Phlebotomy Technologist Relationship Specialty Start Date End Date Hardeep Stevens MD [address] [place] [address] PCP - General Family Medicine 09/30/21 documented as of this encounter
--- OUTSIDE RECORDS SUMMARY | 2024-01-15 10:28 | XMS_ITS | Encounter Summary ---
Author Organization [facility] Address [address] [place] [address] Care Team Providers Care Territory Manager Name Role Phone Hardeep Stevens MD Primary Care Provider + Reason for Visit * Reason Comments Rheumatoid Arthritis Follow up Encounter Details Date Type Department Care Team (Late st Contact Info) Description 01/14/2024 2:45 PM EST Office Visit [facility] [address] [address] Josse Perez DO 3000 [facility] [address] [place], [place] [id number] Seropositive rheumatoid arthritis (Primary Dx); Encounter for therapeutic drug monitoring; Positive QuantiFERON-TB Gold test Social History Tobacco Use Types Packs/Day Years [...] Sign Reading Time Taken Comments Blood Pressure 128/80 01/14/2024 2:42 PM EST Pulse 89 01/14/2024 2:42 PM EST Temperature 36.8 ??C (98.2 ??F) 01/14/2024 2:42 PM ES T Respiratory Rate - - Oxygen Saturation - - Inhaled Oxygen Concentration - - Weight 49.9 kg (110 lb) 01/14/2024 2:42 PM EST Height 172.7 cm (5' 8 ) 01/14/2024 2:42 PM EST Body Mass Index 16.73 01/14/2024 2:42 PM EST documented in this encounter Patient Instructions * Attachments The following attachments cannot be sent through Care Everywhere. * Rheumatoid Arthritis [id number] (Nauruan) documented in this encounter Progress Notes * Josse Perez DO - 01/14/2024 2:45 PM ESTAssociated Problem(s): Seropositive rheumatoid arthritis * Medications/treatments/interventions tried include: Meloxicam, Tylenol, leflunomide * 02/17/2018: RF 341.4 (< 13.9 normal), EMILY direct negative, CRP 24.4 (<4.9 normal) * X-ray left shoulder 01/18/2018: No acute findings. No significant arthritis. * 01/18/2018 right hand x-rays: No fractures. No significant arthritis. * left hand x-rays 01/18/2018: No acute findings. No significant arthritis 1. He is doing well. 2. He is not currently on steroids. 3. Continue Arava. 4. Check labs every 8-12 weeks to monitor for medication toxicity 5. Refill medicine today. 6. Prognosis is good. He rates his pain 7/10 today. 7. Follow up in 3-4 months 8. We gave him a handout on rheumatoid arthritis to take home and review Orders: C-reactive Protein; Future CBC Auto Differential; Future Comprehensive Metabolic Panel; Future Sedimentation Rate; Future * Josse Perez DO - 01/14/2024 2:45 PM ESTAssociated Problem(s): Encounter for therapeutic drug monitoring * Arava PO 20 mg/day for RA 1. CBC and CMP every 8-12 weeks to monitor for medication toxicity. 2. No recent serious infections. 3. Refill today Orders: C-reactive Protein; Future CBC Auto Differential; Future Comprehensive Metabolic Panel; Future Sedimentation Rate; Future * Josse Perez DO - 01/14/2024 2:45 PM ESTAssociated Problem(s): Positive QuantiFERON-TB Gold test His QuantiFERON TB test was positive 03/03/2018. He saw an infectious disease doctor (Dr. Zeeshan Mccrary) and was cleared to take immunosuppressive therapy. In the he was treated for latent TB Orders: C-reactive Protein; Future CBC Auto Differential; Future Comprehensive Metabolic Panel; Future Sedimentation Rate; Future * Josse Perez DO - 01/14/2024 2:45 PM EST Images from the original note were not included. Office Follow Up Date: 01/14/2024 Patient Name: Umang Fernandes Date of : 1955 Referring Physician: Hardeep Stevens, * Chief Complaint Patient presents with Rheumatoid Arthritis Follow up History of Present Illness: Umang Fernandes is a 68 y.o. male who is here today for follow up. Historically his QuantiFERON TB test was positive 03/03/2018. He saw an infectious disease doctor (Dr. Zeeshan Mccrary) and was cleared to take immunosuppressive therapy. In the he was treatedfor latent TB. He is no longer on steroids. He is on Arava. He is tolerating this well. He needs ref ills. Today he rates his pain as 7/10 in severity. He has 20 minutes/day of morning stiffness. No red or hot joints. No swelling. No back or neck pain. No muscle pain or weakness. No rash. No headaches. No lymphadenopathy. No abnormal bleeding/bruising. No GI or problems. No shortness of breath or chest pain. No sicca symptoms. Subjective Review of Systems Constitutional: Negative. HENT: Negative. Eyes: Negative. Respiratory: Negative. Cardiovascular: Negative. Gastrointestinal: Negative. Endocrine: Negative. Genitourinary: Negative. Musculoskeletal: Positive for arthralgias. Skin: Negative. Allergic/Immunologic: Negative. Neurological: Negative. Hematological: Negative. Psychiatric/Behavioral: Negative. All other systems reviewed and are negative. Current Outpatient Medications: albuterol sulfate HFA 108 (90 Base) MCG/ACT inhaler, Inhale 2 puffs Every 4 (Four) Hours As Needed for Wheezing., Disp: 18 g, Rfl: 2 dilTIAZem CD (Cardizem CD) 180 MG 24 hr capsule, Take 1 capsule by mouth Daily., Disp: 90 capsule, Rfl: 0 rosuvastatin (Crestor) 10 MG tablet, Take 1 tablet by mouth Daily., Disp: 90 tablet, Rfl: 3 Symbicort 160-4.5 MCG/ACT inhaler, Inhale 2 puffs 2 (Two) Times a Day., Disp: 3 each, Rfl: 3 leflunomide (Arava) 20 MG tablet, Take 1 tablet by mouth Daily., Disp: 90 tablet, Rfl: 1 No Known Allergies I have reviewed and updated the patient's chief complaint, history of present illness, review of systems, past medical history, surgical history, family history, social history, medications and allergy list as appropriate. Objective Vitals: 01/14/24 1442 BP: 128/80 BP Location: Left arm Pulse: 89 Temp: 98.2 ??F (36.8 ??C) Weight: 49.9 kg (110 lb) Height: 172.7 cm (68 ) PainSc: 7 PainLoc: Wrist Body mass index is 16.73 kg/m??. Physical Exam General: Well appearing 68 year old male. Not in distress. He is ambulating unassisted. Stooped gait. SKIN: No rashes. No alopecia. No subcutaneous nodules. No digital pits or ulcers. No sclerodactyly. HEENT: NCAT. Conjunctiva clear, no photophobia. No oral or nasal ulcers. Hearing intact. Pulmonary: Clear to auscultation bilaterally. No wheezing, rales, or rhonchi. CV: Regular rate and rhythm. No murmurs, rubs, or gallops. Psych: Normal mood and affect. Alert and oriented x 3. Extremities: No cyanosis or edema. Musculoskeletal: No joint swelling. No tenderness to palpation. No warmth or erythema. Normal rangeof motion of the left wrist, ankles, elbows, and knees. Lymph: No palpable cervical adenopathy Procedures Assessment / Plan Assessment & Plan Seropositive rheumatoid arthritis * Medications/treatments/interventions tried include: Meloxicam, Tylenol, leflunomide * 02/17/2018: RF 341.4 (< 13.9 normal), EMILY direct negative, CRP 24.4 (<4.9 normal) * X-ray left shoulder 01/18/2018: No acute findings. No significant arthritis. * 01/18/2018 right hand x-rays: No fractures. No significant arthritis. * left hand x-rays 01/18/2018: No acute findings. No significant arthritis 1. He is doing well. 2. He is not currently on steroids. 3. Continue Arava. 4. Check labs every 8-12 weeks to monitor for medication toxicity 5. Refill medicine today. 6. Prognosis is good. He rates his pain 7/10 today. 7. Follow up in 3-4 months 8. We gave him a handout on rheumatoid arthritis to take home and review Orders: C-reactive Protein; Future CBC Auto Differential; Future Comprehensive Metabolic Panel; Future Sedimentation Rate; Future Encounter for therapeutic drug monitoring * Arava PO 20 mg/day for RA 1. CBC and CMP every 8-12 weeks to monitor for medication toxicity. 2. No recent serious infections. 3. Refill today Orders: C-reactive Protein; Future CBC Auto Differential; Future Comprehensive Metabolic Panel; Future Sedimentation Rate; Future Positive QuantiFERON-TB Gold test His QuantiFERON TB test was positive 03/03/2018. He saw an infectious disease doctor (Dr. Zeeshan Mccrary) and was cleared to take immunosuppressive therapy. In the he was treated for latent TB Orders: C-reactive Protein; Future CBC Auto Differential; Future Comprehensive Metabolic Panel; Future Sedimentation Rate; Future Follow Up: Return in about 4 months (around 05/14/2024). Josse Perez DO [facility] [place] Rheumatology [facility] documented in this encounter Plan of Treatment Upcoming Encounters Date Type Department Care Team (Late st Contact Info) Description 02/05/2024 10:15 AM EST Office Visit [facility] [address] [phone] Hardeep Stevens MD [address] [address] 06/14/2024 10:45 AM EDT Office Visit [facility] [address] [facility] [address] [address] [place] [address] Josse Perez DO 3000 [facility] [address] [place], [place] [id number] Scheduled Orders Name Type Priority Associated Diagnoses Orde r Schedule C-reactive Protein Lab Routine Seropositive rheumatoid arthritis Encounter for therapeutic drug monitoring Positive QuantiFERON-TB Gold test Expected: 01/19/2024 (Approximate), Expires: 01/13/2025 CBC Auto Differential Lab Routine Seropositive rheumatoid arthritis Encounter for therapeutic drug monitoring Positive QuantiFERON-TB Gold test Expected: 01/19/2024 (Approximate), Expires: 01/13/2025 Comprehensive Metabolic Panel Lab Routine Seropositive rheumatoid arthritis Encounter for therapeutic drug monitoring Positive QuantiFERON-TB Gold test Expected: 01/19/2024 (Approximate), Expires: 01/13/2025 Sedimentation Rate Lab Routine Seropositive rheumatoid arthritis Encounter for therapeutic drug monitoring Positive QuantiFERON-TB Gold test Expected: 01/19/2024 (Approximate), Expires: 01/13/2025 documented as of this encounter Visit Diagnoses Diagnosis Seropositive rheumatoid arthritis- Primary Encounter for therapeutic drug monitoring Positive QuantiFERON-TB Gold test documented in this encounter Care Teams Territory Manager Relationship Specialty Start Date End Date Hardeep Stevens MD [address] [address] PCP - General Family Medicine 09/30/21 documented as of this encounter
--- OUTSIDE RECORDS SUMMARY | 2024-01-15 10:28 | XMS_ITS | Encounter Summary ---
Author Organization [facility] Address [address] [place] [id number] Care Team Providers Care Nurse Ldr Name Role Phone Hardeep Stevens MD Primary Care Provider + Reason for Visit * Reason Comments Rheumatoid Arthritis Encounter Details Date Type Department Care Team (Late st Contact Info) Description 08/20/2023 11:00 AM EDT Office Visit [facility]Y [address] [facility] [address] [address] [place] [phone] Gerhard Castaneda APRN 3000 [facility] [address] [place] [id number] Rheumatoid arthritis involving multiple sites with positive rheumatoid factor (Primary Dx); Positive QuantiFERON-TB Gold test; High risk medication use Social History Tobacco Use Types Packs/Day Years Used Date Smoking Tobacco: Every Day Cigarettes Smokeless Tobacco: Never Tobacco Cessation:Ready to Q uit: Not Asked; Counseling Given: Not Answered Alcohol Use Standard Drinks/Week Comments Yes 0 (1 standard drink = 0.6 oz pur e alcohol) BEER, CONSUMED DAILY PHQ-2 Answer Date Recorded Retired PHQ-9: Brief Depression Severity Measure Score 0 10/02/2022 PHQ-2 Answer Date Recorded Retired PHQ-9: Brief Depression Severity Measure Score 0 10/02/2022 Sex and Gender Information Value Date Recorded Sex Assigned at Not on file Legal Sex Male 11:48 AM EDT Gender Identity Not on file Sexual Orientation Not on file documented as of this encounter Last Filed Vital Signs Vital Sign Reading Time Taken Comments Blood Pressure 140/82 08/20/2023 11:01 AM EDT Pulse 89 08/20/2023 11:01 AM EDT Temperature 36.6 ??C (97.9 ??F) 08/20/2023 11:01 AM E DT Respiratory Rate - - Oxygen Saturation - - Inhaled Oxygen Concentration - - Weight 50.3 kg (111 lb) 08/20/2023 11:01 AM EDT Height 172.7 cm (5' 7.99 ) 08/20/2023 11:01 AM E DT Body Mass Index 16.88 08/20/2023 11:01 AM EDT documented in this encounter Progress Notes * Gerhard Castaneda, DENISHA - 08/20/2023 11:00 AM EDT Images from the original note were not included. Office Visit Date: 08/20/2023 Patient Name: Umang Fernandes Date of : 1955 Referring Physician: Hardeep Stevens, * Chief Complaint: Chief Complaint Patient presents with Rheumatoid Arthritis History of Present Illness: Umang Fernandes is a 68 y.o. male who is here today for follow-up of rheumatoid arthritis. Today he reports feeling the same. He rates his pain 3 out of 10 and has 15 minutes of morning stiffness. He denies any recent injuries or infections. He would like a refill of leflunomide. Subjective Review of Systems: Review of Systems All other systems reviewed and are negative. Past Medical History: Past Medical History: Diagnosis Date COPD (chronic obstructive pulmonary disease) High cholesterol Latent tuberculosis Rheumatoid arthritis Past Surgical History: Past Surgical History: Procedure Laterality Date APPENDECTOMY 1966 TONSILLECTOMY 1966 Family History: Family History Problem Relation Age of Onset Lung disease Mother Heart disease Father Heart attack Father Social History: Social History Socioeconomic History Marital status: Tobacco Use Smoking status: Every Day Types: Cigarettes Smokeless tobacco: Never Vaping Use Vaping status: Never Used Substance and Sexual Activity Alcohol use: Yes Comment: BEER, CONSUMED DAILY Drug use: Never Sexual activity: Defer Medications: Current Outpatient Medications: albuterol sulfate HFA 108 (90 Base) MCG/ACT inhaler, Inhale 2 puffs Every 4 (Four) Hours As Needed for Wheezing., Disp: 18 g, Rfl: 2 leflunomide (ARAVA) 20 MG tablet, Take 1 tablet by mouth Daily., Disp: 90 tablet, Rfl: 1 simvastatin (ZOCOR) 40 MG tablet, Take 1 tablet by mouth Every Night., Disp: 90 tablet, Rfl: 3 Symbicort 160-4.5 MCG/ACT inhaler, Inhale 2 puffs 2 (Two) Times a Day., Disp: 3 each, Rfl: 3 Allergies: No Known Allergies I have reviewed and updated the patient's chief complaint, history of present illness, review of systems, past medical history, surgical history, family history, social history, medications and allergy list as appropriate. Objective Vital Signs: Vitals: 08/20/23 1101 BP: 140/82 BP Location: Left arm Patient Position: Sitting Cuff Size: Small Adult Pulse: 89 Temp: 97.9 ??F (36.6 ??C) Weight: 50.3 kg (111 lb) Height: 172.7 cm (67.99 ) PainSc: 3 PainLoc: Generalized Body mass index is 16.88 kg/m??. BMI is below normal parameters (malnutrition). Recommendations: Follow-up with primary care provider Physical Exam: Physical Exam Vitals reviewed. Constitutional: Appearance: Normal appearance. He is underweight. HENT: Head: Normocephalic and atraumatic. Mouth/Throat: Mouth: Mucous membranes are moist. Eyes: Conjunctiva/sclera: Conjunctivae normal. Cardiovascular: Rate and Rhythm: Normal rate and regular rhythm. Pulses: Normal pulses. Heart sounds: Normal heart sounds. Pulmonary: Effort: Pulmonary effort is normal. Breath sounds: Normal breath sounds. Musculoskeletal: General: Normal range of motion. Cervical back: Normal range of motion and neck supple. Right lower le+ Pitting Edema present. Left lower le+ Pitting Edema present. Comments: He has swelling of the right wrist. No synovitis. OA changes bilateral hands. Skin: General: Skin is warm and dry. Neurological: General: No focal deficit present. Mental Status: He is alert and oriented to person, place, and time. Mental status is at baseline. Psychiatric: Mood and Affect: Mood normal. Behavior: Behavior normal. Thought Content: Thought content normal. Judgment: Judgment normal. Results Review: Imaging Results (Last 24 Hours) No results found for the last 24 hours. Procedures Assessment / Plan Assessment/Plan: Diagnoses and all orders for this visit: 1. Rheumatoid arthritis involving multiple sites with positive rheumatoid factor (Primary) Assessment & Plan: * Medications/treatments/interventions tried include: Meloxicam * 02/17/2018: RF 341.4 (< 13.9 normal), [...] Prognosis is good. He rates his pain 04/18 today. 7. Follow up in 3-4 months 8. Reviewed labs in [facility] from April 20, 2023. These labs are stable. 9. He has occasional right wrist swelling. 10. He has pitting edema of the ankles. He reports pain is better with walking and has pain in ankles when ankles are propped up. Encouraged him to wear compression stockings. Also to follow-up with PCP for ankle swelling. Orders: - CBC With Manual Differential; Future - Comprehensive Metabolic Panel; Future - C-reactive Protein; Future - Sedimentation Rate; Future - leflunomide (ARAVA) 20 MG tablet; Take 1 tablet by mouth Daily. Dispense: 90 tablet; Refill: 1 2. Positive QuantiFERON-TB Gold test Assessment & Plan: His QuantiFERON TB test was positive 03/03/2018. He saw an infectious disease doctor (Dr. Zeeshan Mccrary) and was cleared to take immunosuppressive therapy. In the he was treated for latent TB 3. High risk medication use Assessment & Plan: * Arava PO 20 mg/day for RA 1. CBC and CMP every 8-12 weeks to monitor for toxicity. 2. Standing labs order written today. 3. No recent serious infections. 4. Refill today Orders: - CBC With Manual Differential; Future - Comprehensive Metabolic Panel; Future - C-reactive Protein; Future - Sedimentation Rate; Future Follow Up: Return 3 to 4 months, for Dr. Perez. Gerhard Castaneda APRN [facility] Rheumatology [facility] * Gerhard Castaneda APRN - 08/19/2023 12:37 PM EDTAssociated Problem(s): High risk medication use * Arava PO 20 mg/day for RA 1. CBC and CMP every 8-12 weeks to monitor for toxicity. 2. Standing labs order written today. 3. No recent serious infections. 4. Refill today * Gerhard Castaneda APRN - 08/19/2023 12:37 PM EDTAssociated Problem(s): Positive QuantiFERON-TB Gold test His QuantiFERON TB test was positive 03/03/2018. He saw an infectious disease doctor (Dr. Zeeshan Mccrary) and was cleared to take immunosuppressive therapy. In the he was treated for latent TB * Gerhard Castaneda APRN - 08/19/2023 12:37 PM EDTAssociated Problem(s): Rheumatoid arthritis involving multiple sites with positive rheumatoid factor (Resolved 01/14/2024) * Medications/treatments/interventions tried include: Meloxicam * 02/17/2018: RF 341.4 (< 13.9 normal), [...] Prognosis is good. He rates his pain /10 today. 7. Follow up in 3-4 months 8. [facility]. These labs are stable. 9. He has occasional right wrist swelling. 10. He has pitting edema of the ankles. He reports pain is better with walking and has pain in ankles when ankles are propped up. Encouraged him to wear compression stockings. Also to follow-up with PCP for ankle swelling. documented in this encounter Plan of Treatment Upcoming Encounters Date Type Department Care Team (Late st Contact Info) Description 02/05/2024 10:15 AM EST Office Visit [facility] [address] [place] [address] Hardeep Stevens MD [address] [place] [address] 06/14/2024 10:45 AM EDT Office Visit [facility] RHEUM[facility]OLOGY [address] [place] [phone] Josse Perez DO 3000 [facility] [address] [place] [id number] Scheduled Orders Name Type Priority Associated Diagnoses Orde r Schedule CBC With Manual Differential Lab Panel Routine Rheumatoid arthritis involving multiple sites with positive rheumatoid factor High risk medication use Expected: 02/16/2024, Expires: 08/19/2024 Comprehensive Metabolic Panel Lab Routine Rheumatoid arthritis involving multiple sites with positive rheumatoid factor High risk medication use Expected: 02/16/2024, Expires: 08/19/2024 C-reactive Protein Lab Routine Rheumatoid arthritis involving multiple sites with positive rheumatoid factor High risk medication use Expected: 02/16/2024, Expires: 08/19/2024 Sedimentation Rate Lab Routine Rheumatoid arthritis involving multiple sites with positive rheumatoid factor High risk medication use Expected: 02/16/2024, Expires: 08/19/2024 documented as of this encounter Visit Diagnoses Diagnosis Rheumatoid arthritis involving multiple sites with positive rheumatoid factor- Primary Positive QuantiFERON-TB Gold test High risk medication use documented in this encounter Care Teams Nurse Ldr Relationship Specialty Start Date End Date Hardeep Stevens MD [address] [place] [address] PCP - General Family Medicine 09/30/21 documented as of this encounter
--- OUTSIDE RECORDS SUMMARY | 2024-01-15 10:28 | XMS_ITS | Clinical Summary ---
Author Organization [facility] Address [address] [place] [id number] Care Team Providers Care Medical Photographer Name Role Phone Hardeep Stevens MD Primary Care Provider + Allergies No known active allergies Medications Symbicort 160-4.5 MCG/ACT inhalerIndicatio ns:Pulmonary emphysema, unspecified emphysema type Inhale 2 puffs 2 (Two) Times a Day. 3 each 3 4 Active rosuvastatin (Crestor) 10 MG tablet Take 1 tablet by mouth Daily. 90 tablet 3 4 Active albuterol sulfate HFA 108 (90 Base) MCG/ACT inhalerIndicatio ns:Pulmonary emphysema, unspecified emphysema type Inhale 2 puffs Every 4 (Four) Hours As Needed for Wheezing. 18 g 2 4 Active dilTIAZem CD (Cardizem CD) 180 MG 24 hr capsuleIndicatio ns:Permanent atrial fibrillation Take 1 capsule by mouth Daily. 90 capsule 4 Active leflunomide (Arava) 20 MG tablet Take 1 tablet by mouth Daily. 90 tablet 1 4 Active leflunomide (ARAVA) 20 MG tabletIndication s:Rheumatoid arthritis involving multiple sites with positive rheumatoid factor Take 1 tablet by mouth Daily. 90 tablet 1 4 01/14/20 24 Discontinue d(Reorder) leflunomide (ARAVA) 20 MG tablet Take 1 tablet by mouth Daily. 90 tablet 1 4 01/14/20 24 Discontinue d(Patient Reported Not Taking) Active Problems Problem Noted Date Diagnosed Date Encounter for therapeutic drug monitoring 2023 Assessment & Plan (01/14/2024 2:58 PM EST): * Arava PO 20 mg/day for RA 1. CBC and CMP every 8-12 weeks to monitor for medication toxicity. 2. No recent serious infections. 3. Refill today Orders: C-reactive Protein; Future CBC Auto Differential; Future Comprehensive Metabolic Panel; Future Sedimentation Rate; Future Seropositive rheumatoid arthritis 01/14/2024 Assessment & Plan (01/14/2024 2:58 PM EST): * Medications/treatments/interventions tried include: Meloxicam, Tylenol, leflunomide [...] Comprehensive Metabolic Panel; Future Sedimentation Rate; Future Pulmonary hypertension 10/26/2023 Alcoholism 09/28/2023 Atrial fibrillation with rapid ventricular respo nse 09/28/2023 Assessment & Plan (09/28/2023 12:27 PM EDT): Condition is newly identified. Emphysema and alcoholism are risk factors for A- fib and patient was made aware. Labs will be drawn to assess thyroid function as well as electrolyte abnormalities considering he has prior hypokalemia. Echocardiogram will be arranged at [facility]. Patient declined referral to cardiology. He would prefer medical management. [id number] 2 score of 1. Patient has no documented history of hypertension Positive QuantiFERON-TB Gold test 08/16/2023 Assessment & Plan (01/14/2024 2:58 PM EST): His QuantiFERON TB test was positive 03/03/2018. He saw an infectious disease doctor (Dr. Zeeshan Mccrary) and was cleared to take immunosuppressive therapy. In the he was treated for latent TB Orders: C-reactive Protein; Future CBC Auto Differential; Future Comprehensive Metabolic Panel; Future Sedimentation Rate; Future Assessment & Plan (08/19/2023 12:37 PM EDT): His QuantiFERON TB test was positive 03/03/2018. He saw an infectious disease doctor (Dr. Zeeshan Mccrary) and was cleared to take immunosuppressive therapy. In the he was treated for latent TB High risk medication use 08/16/2023 Assessment & Plan (08/19/2023 12:37 PM EDT): * Arava PO 20 mg/day for RA 1. CBC and CMP every 8-12 weeks to monitor for toxicity. 2. Standing labs order written today. 3. No recent serious infections. 4. Refill today Screening declined by patient 09/30/2021 Overview (09/30/2021): CRC, lung cancer screening, AAA screening had been declined by the patient repeatedly Pulmonary emphysema 09/30/2021 Overview (09/30/2021): Stable. Refill Symbicort for 1 year Hypercholesterolemia 09/30/2021 Overview (09/30/2021): Lipid panel ordered. Refilled simvastatin for 1 year Resolved Problems Problem Noted Date Diagnosed Date Resolved Date Rheumatoid arthritis involvi ng multiple sites with positive rheumatoid factor 08/16/2023 01/14/20 Assessment & Plan (08/20/2023 12:33 PM EDT): * Medications/treatments/interventions tried include: Meloxicam * 02/17/2018: [...] in 3-4 months 8. Reviewed labs in [facility] from April 20, 2023. These labs are stable. 9. He has occasional right wrist swelling. 10. He has pitting edema of the ankles. He reports pain is better with walking and has pain in ankles when ankles are propped up. Encouraged him to wear compression stockings. Also to follow-up with PCP for ankle swelling. Rheumatoid arthritis involvi ng right wrist with positive rheumatoid factor 09/30/2021 01/14/20 24 Overview (09/30/2021): Stable. Follow-up with rheumatology every 6 months. Encounters Date Type Department Care Team Description 01/14/2024 2:45 PM EST Office Visit [facility] RHEUMATOLOGY [address] [address] Josse Perez DO Seropositive rheumatoid arthritis (Primary Dx); Encounter for therapeutic drug monitoring; Positive QuantiFERON-TB Gold test 01/14/2024 Travel 11/20/2023 Telephone [facility] [address] [address] Hardeep Stevens MD MEDICATION CONCERN 10/26/2023 10:45 AM EDT Office Visit [facility] [address] [address] Hardeep Stevens MD Permanent atrial fibrillation (Primary Dx) 10/26/2023 Refill [facility] [address] [address] Hardepe Stevens MD Atrial fibrillation with rapid ventricular response from Last 3 Months Immunizations Name Administration Dates Next Due COVID-19 (PFIZER) 12YRS+ (COMIRNATY) 06/04/2020 COVID-19 (PFIZER) Purple Cap Monovalent 12/19/2020,05/30/2020,05/14/2020,05/02 Flu Vaccine Quad PF >36MO 11/06/2015 Fluad Quad 65+ 11/04/2021 Fluzone (or Fluarix & Flulav al for VFC) >6mos 11/06/2015 INFLUENZA SPLIT TRI 10/26/2020 Pneumococcal Conjugate 20-Va lent (PCV20) 10/02/2022 Pneumococcal Polysaccharide (PPSV23) 05/29/2015 Zostavax 06/13/2015 Family History Medical History Relation Name Comments Heart attack Father Heart disease Father Lung disease Mother Relation Name Status Comments Father Mother Social History Tobacco Use Types Packs/Day Years Used Date Smoking Tobacco: Every Day Cigarettes Smokeless Tobacco: Never Tobacco Cessation:Ready to Q uit: No; Counseling Given: Not Answered Alcohol Use Standard [...] on file Sexual Orientation Not on file Last Filed Vital Signs Vital Sign Reading Time Taken Comments Blood Pressure 128/80 01/14/2024 2:42 PM EST Pulse 89 01/14/2024 2:42 PM EST Temperature 36.8 ??C (98.2 ??F) 01/14/2024 2:42 PM ES T Respiratory Rate 20 10/26/2023 10:30 AM EDT Oxygen Saturation 95% 09/28/2023 10:43 AM EDT Inhaled Oxygen Concentration - - Weight 49.9 kg (110 lb) 01/14/2024 2:42 PM EST Height 172.7 cm (5' 8 ) 01/14/2024 2:42 PM EST Body Mass Index 16.73 01/14/2024 2:42 PM EST Plan of Treatment Upcoming Encounters Date Type Department Care Team (Late st Contact Info) Description 02/05/2024 10:15 AM EST Office Visit [facility] [address] [phone] Hardeep Stevens MD [address] [place] [id number] 06/14/2024 10:45 AM EDT Office Visit [facility] RHEUM[facility]Y 3000 [facility] [address] [place] [address] Josse Perez DO 3000 [facility] [place] [address] [place] [address] Health Maintenance Due Date Last Done Comments COLOGUARD 1955 COLON CANCER SCREENING 5 YEA R SIGMOIDOSCOPY [address] COLONOGRAPHY 1955 FECAL OCCULT BLOOD TEST 1955 FIT Testing (1 year) 1955 TDAP/TD VACCINES (1 - Tdap) 1974 ZOSTER VACCINE (2 of 3) 08/08/2015 06/13/2015 HEPATITIS C SCREENING 09/30/2021 ANNUAL WELLNESS VISIT 10/03/2023 10/02/2022 , 10/02/2022, 09/30/2021 BMI FOLLOWUP 08/19/2024 08/20/2023, 09/30/2021 LIPID PANEL 09/27/2024 09/28/2023, 09/10, 09/30/2021 Pneumococcal Vaccine 65+ Completed 10/02/2022, 05/10 COVID-19 Vaccine Completed 12/11/2023, 05/2022, 11/04/2021, Additional history exists INFLUENZA VACCINE Completed 12/11/2023, , 11/04/2021, Additional history exists AAA SCREEN (ONE-TIME) Discontinued COLORECTAL CANCER SCREENING Discontinued Procedures Procedure Name Priority Date/Time Associated Diagnosis Comments LIPID PANEL Routine 09/28/2023 11:32 AM EDT Hypercholesterolemia from Last 3 Months or Most Recently Relevant to Health Maintenance Results * (ABNORMAL) Lipid Panel (09/28/2023 11:32 AM EDT) Total Cholesterol 209(H) 100 - 199 mg/dL [facility] Triglycerides 65 0 - 149 mg/dL [facility] HDL Cholesterol 134 >39 mg/dL [facility] VLDL Cholesterol Jorge Alberto 12 5 - 40 mg/dL [facility] LDL Chol Calc ([facility]) 63 0 - 99 mg/dL [facility] Blood 09/28/2023 11:3 2 AM EDT 09/28/2023 Narrative [facility] (AMBULATORY) - 09/29/2023 12:11 PM EDT Performed at: ??01 - [facility] [address] ??[id number] Women Designer: Steven Santiago PhD, Phone: ??[phone] Patient Fasting: ??Y Hardeep Stevens MD LAB BLOOD ORDERABLES Fin al Result [facility] (AMBULATORY) [address] [place] [address], [facility] [address] [place] [address], [place] [phone] from Last 3 Months or Most Recently Relevant to Health Maintenance Insurance MEDICARE A & B [facility] PPO Care Teams Medical Photographer Relationship Specialty Start Date End Date Hardeep Stevens MD [address] [place] [address] PCP - General Family Medicine 09/30/21
--- OUTSIDE RECORDS SUMMARY | 2024-01-15 10:28 | XMS_ITS | Encounter Summary ---
Author Organization [facility] Address [address] [place] [phone] Care Team Providers Care Capture Manager Name Role Phone Hardeep Stevens MD Primary Care Provider + Encounter Details Date Type Department Care Team (Latest Contact Info) Description 01/14/2024 Travel Social History Tobacco Use Types Packs/Day Years [...] Description 02/05/2024 10:15 AM EST Office Visit [facility]INE [address] [place] [address] Hardeep Stevens MD [address] [place] [address] 06/14/2024 10:45 AM EDT Office Visit [facility] RHEUMATOLOGY [address] [address] Josse Perez DO 3000 [facility] [place] [address] [address] documented as of this encounter Visit Diagnoses Not on filedocumented in this encounter Care Teams Capture Manager Relationship Specialty Start Date End Date Hardeep Stevens MD [address] [place] [address] PCP - General Family Medicine 09/30/21 documented as of this encounter
--- OUTSIDE RECORDS SUMMARY | 2024-01-15 10:28 | XMS_ITS | Encounter Summary ---
Author Organization [facility] Address [address] [place] [address] Care Team Providers Care Fur Ironer Name Role Phone Hardeep Stevens MD Primary Care Provider + Reason for Visit * Reason Comments FU on atrial fibrillation Encounter Details Date Type Department Care Team (Late st Contact Info) Description 10/26/2023 10:45 AM EDT Office Visit [facility] [address] [place] [address] Hardeep Stevens MD [address] [place] [address] Permanent atrial fibrillation (Primary Dx) Social History Tobacco Use Types Packs/Day Years [...] Sign Reading Time Taken Comments Blood Pressure 160/88 10/26/2023 10:30 AM EDT Pulse 92 10/26/2023 10:30 AM EDT irre gular Temperature 36.6 ??C (97.8 ??F) 10/26/2023 10:30 AM E DT Respiratory Rate 20 10/26/2023 10:30 AM EDT Oxygen Saturation - - Inhaled Oxygen Concentration - - Weight 52 kg (114 lb 9.6 oz) 10/26/2023 10:30 AM EDT Height 172.7 cm (5' 7.99 ) 10/26/2023 10:30 AM E DT Body Mass Index 17.43 10/26/2023 10:30 AM EDT documented in this encounter Progress Notes * Hardeep Stevens MD - 10/26/2023 10:45 AM EDT Chief Complaint Patient presents with FU on atrial fibrillation Subjective Umang Fernandes is a 68 y.o. who presents for atrial fibrillation follow-up. Patient denies palpitations or any worsening shortness of breath. He has not had any side effects such as constipation or lower extremity edema with initiation of diltiazem therapy. He is taking aspirin 81 mg daily. Echocardiogram showed normal LV function, increased right ventricular systolic pressures and RV hypokinesis The following portions of the patient's history were reviewed and updated as appropriate: allergies, current medications, past family history, past medical history, past social history, past surgicalhistory, and problem list. Review of Systems Objective Vital Signs: BP 160/88 Pulse 92 Comment: irregular Temp 97.8 ??F (36.6 ??C) Resp 20 Ht 172.7 cm (67.99 ) Wt 52 kg (114 lb 9.6 oz) BMI 17.43 kg/m?? Physical Exam Vitals reviewed. Constitutional: Appearance: Normal appearance. HENT: Head: Normocephalic. Nose: Nose normal. Mouth/Throat: Mouth: Mucous membranes are moist. Pharynx: Oropharynx is clear. Cardiovascular: Rate and Rhythm: Normal rate. Rhythm irregular. Pulses: Normal pulses. Pulmonary: Effort: Pulmonary effort is normal. No respiratory distress. Breath sounds: Normal breath sounds. No wheezing. Neurological: Mental Status: He is alert. Result Review Assessment and Plan Diagnoses and all orders for this visit: 1. Permanent atrial fibrillation (Primary) Comments: Condition is stable. Continue aspirin 81 mg daily and diltiazem CD 180 mg daily. Reassess in 3 months Orders: - Discontinue: dilTIAZem CD (Cardizem CD) 180 MG 24 hr capsule; Take 1 capsule by mouth Daily. Dispense: 30 capsule; Refill: 0 - dilTIAZem CD (Cardizem CD) 180 MG 24 hr capsule; Take 1 capsule by mouth Daily. Dispense: 90 capsule; Refill: 0 Follow Up Return in about 3 months (around 01/25/2024) for Medicare Wellness and A-fib follow up. Patient was given instructions and counseling regarding his condition or for health maintenance advice. Please see specific information pulled into the AVS if appropriate. documented in this encounter Plan of Treatment Upcoming Encounters Date Type Department Care Team (Late st Contact Info) Description 02/05/2024 10:15 AM EST Office Visit [facility] FAMILY MEDICINE [address] [place] [address] Hardeep Stevens MD [address] [place] [address] 06/14/2024 10:45 AM EDT Office Visit [facility] RHEUMATOLOGY [address] [address] Josse Perez DO 3000 [facility] [place] [address] [place] [address] documented as of this encounter Visit Diagnoses Diagnosis Permanent atrial fibrillation- Primary Atrial fibrillation documented in this encounter Care Teams Fur Ironer Relationship Specialty Start Date End Date Hardeep Stevens MD [address] [place] [address] PCP - General Family Medicine 09/30/21 documented as of this encounter
--- OUTSIDE RECORDS SUMMARY | 2024-01-15 10:28 | XMS_ITS | Encounter Summary ---
Author Organization [facility] Address [address] [place] [address] Care Team Providers Care Food Critic Name Role Phone Hardeep Stevens MD Primary Care Provider + Reason for Referral * Consultation (Routine) - Closed Specialty Diagnoses / Procedures Referred By Contac t Referred To Contact Dermatology Diagnoses Neoplasm of uncertain behavior of skin of face Procedures [place] OFFICE/OUTPATIENT NEW MODERATE MDM 45-59 MINUTES Hardeep Stevens MD [address] [facility] [address] Phone: tel: fax: Rick Jack MD [address] [place] [address] Phone: tel: fax: Referral ID Status Reason Start Date Expiration Date V isits Requested Visits Authorized [id number] Closed Specialty Services Required 02/17/2022 02/17/2023 1 1 Reason for Visit * Reason Comments pt requesting a rescue inhaler check lesion on L side face Encounter Details Date Type Department Care Team (Late st Contact Info) Description 02/17/2022 10:45 AM EST Office Visit [facility] [address] [place] [address] Hardeep Stevens MD 210 [facility] [place] [address] Pulmonary emphysema, unspecified emphysema type (Primary Dx); Neoplasm of uncertain behavior of skin of face Social History Tobacco Use Types Packs/Day Years [...] Sign Reading Time Taken Comments Blood Pressure 180/75 02/17/2022 10:52 AM EST Pulse 78 02/17/2022 10:52 AM EST Temperature 36.7 ??C (98 ??F) 02/17/2022 10: 52 AM EST Respiratory Rate 20 02/17/2022 10:5 2 AM EST Oxygen Saturation - - Inhaled Oxygen Concentration - - Weight 51.2 kg (112 lb 12.8 oz) 023 10:52 AM EST Height 172.7 cm (5' 7.99 ) 02/17/2022 1 0:52 AM EST Body Mass Index 17.16 02/17/2022 10:52 AM EST documented in this encounter Progress Notes * Hardeep Stevens MD - 02/17/2022 10:45 AM EST Chief Complaint Patient presents with ??? pt requesting a rescue inhaler ??? check lesion on L side face Subjective Umang Fernandes is a 66 y.o. who presents for 2 reasons. First he needs a rescue inhaler for his COPD. He continues his Controller medicine. He denies recent exacerbations. Second is a nonhealing, recurring, crusted skin lesion on the left face in front of the ear. He has had previous lesions removedon his face and claims they were cancer. He has a telephoner representing him in the [employer] who has requested records. Patient saw me at my prior practice in [place] and is inquiring about his medical records. Objective Vital Signs: BP 180/75 Pulse 78 Temp 98 ??F (36.7 ??C) Resp 20 Ht 172.7 cm (67.99 ) Wt 51.2 kg (112 lb12.8 oz) BMI 17.16 kg/m?? Physical Exam Skin: Comments: Anterior to the left ear is a crusted quarter sized lesion Neurological: Mental Status: He is alert. Result Review Assessment and Plan Diagnoses and all orders for this visit: 1. Pulmonary emphysema, unspecified emphysema type (HCC) (Primary) Comments: RX for Albuterol sulfate sent to pharmacy Overview: Stable. Refill Symbicort for 1 year Orders: - albuterol sulfate HFA 108 (90 Base) MCG/ACT inhaler; Inhale 2 puffs Every 4 (Four) Hours As Needed for Wheezing. Dispense: 18 g; Refill: 2 2. Neoplasm of uncertain behavior of skin of face Comments: Refer to Dermatology and obtain old records Orders: - Ambulatory Referral to Dermatology Follow Up Return in about 7 months (around 09/17/2022) for Medicare Wellness. Patient was given instructions and counseling regarding his condition or for health maintenance advice. Please see specific information pulled into the AVS if appropriate. documented in this encounter Plan of Treatment Upcoming Encounters Date Type Department Care Team (Late st Contact Info) Description 02/05/2024 10:15 AM EST Office Visit [facility] [address] [place] [phone] Hardeep Stevens MD [address] [place] [address] 06/14/2024 10:45 AM EDT Office Visit [facility] RHEUM[facility]OLOGY [address] [address] Josse Perez DO 3000 [facility] [place] [address] [place] [address] documented as of this encounter Visit Diagnoses Diagnosis Pulmonary emphysema, unspecified emphysema type- Primary Neoplasm of uncertain behavior of skin of face documented in this encounter Care Teams Food Critic Relationship Specialty Start Date End Date Hardeep Stevens MD [address] [place] [address] PCP - General Family Medicine 09/30/21 documented as of this encounter
--- OUTSIDE RECORDS SUMMARY | 2024-01-15 10:28 | XMS_ITS | Encounter Summary ---
Author Organization [facility] Address [address] [place] [address] Care Team Providers Care Meter Reader Name Role Phone Hardeep Stevens MD Primary Care Provider + Reason for Visit * Reason Onset Date Comments MEDICATION CONCERN 11/20/2023 Encounter Details Date Type Department Care Team (Late st Contact Info) Description 11/20/2023 Telephone [facility] [address] [place] [address] Hardeep Stevens MD [address] [place] [address] MEDICATION CONCERN Social History Tobacco Use Types Packs/Day Years [...] on file documented as of this encounter Miscellaneous Notes * Telephone Encounter - Jessica Bethea MA - 11/20/2023 5:20 PM EDT Stephanie aware rx has been sent. * Telephone Encounter - Candie Pulido RegSched Rep - 11/20/2023 8:53 AM EDT Caller: STEPHANIE MAYS Relationship: Emergency Contact Best call back number: [phone] Which medication are you concerned about: dilTIAZem CD (Cardizem CD) 180 MG 24 hr capsule Who prescribed you this medication: CAM What are your concerns: MEDICATION WAS SENT TO [facility] BUT THEY ARE OUT OF STOCK AND ADVISED PATIENT TO GET IT LOCALLY. [facility] documented in this encounter Plan of Treatment Upcoming Encounters Date Type Department Care Team (Late st Contact Info) Description 02/05/2024 10:15 AM EST Office Visit [facility] [address] [place] [address] Hardeep Stevens MD [address] [place] [address] 06/14/2024 10:45 AM EDT Office Visit [facility] RHE[facility]OLOG[facility] [address] [address] Josse Perez DO 3000 [facility] [address] [place] [address] documented as of this encounter Visit Diagnoses Not on filedocumented in this encounter Care Teams Meter Reader Relationship Specialty Start Date End Date Hardeep Stevens MD [address] [place] [address] PCP - General Family Medicine 09/30/21 documented as of this encounter
--- OUTSIDE RECORDS SUMMARY | 2024-01-15 10:28 | XMS_ITS | Encounter Summary ---
Author Organization [facility] Address [address] [place] [address] Care Team Providers Care Yardage Control Operator Forming Name Role Phone Hardeep Levy MD Primary Care Provider + Reason for Visit * Reason Onset Date Comments MED CALLBACK 09/28/2023 Encounter Details Date Type Department Care Team (Late st Contact Info) Description 09/28/2023 Telephone [facility] [address] [place] [address] Hardeep Levy MD [address] [place] [address] MED CALLBACK Social History Tobacco Use Types Packs/Day Years [...] encounter Miscellaneous Notes * Telephone Encounter - Rosa Kimball MA - 09/28/2023 3:38 PM EDT Will transfer them today to the [facility] * Telephone Encounter - Charley Kay RegSched Rep - 09/28/2023 2:58 PM EDT Caller: STEPHANIE MAYS Relationship: Emergency Contact Best call back number: [phone] What is the best time to reach you: ANY Who are you requesting to speak with (clinical staff, provider, specific staff member): DR. LEVY OR HIS NURSE What was the call regarding: SHE IS CALLING ABOUT THE MEDICATIONS THAT WERE SUPPOSED TO BE CALLED IN TO THE LOCAL PHARMACY. THE MEDICATION WAS SENT TO THE WRONG PHARMACY. THESE WERE THE albuterol sulfate HFA 108 (90 Base) MCG/ACT inhaler AND dilTIAZem CD (Cardizem CD) 180 MG 24 hr capsule. THESE NEED TO BE RESENT TO THE CORRECT PHARMACY CARLOS. PLEASE LET HER KNOW WHEN DONE. [id number] - [place], [place] - [address] [address] [address] [facility] - [phone] [facility] [phone] FX Is it okay if the provider responds through MyChart: NO documented in this encounter Plan of Treatment Upcoming Encounters Date Type Department Care Team (Late st Contact Info) Description 02/05/2024 10:15 AM EST Office Visit [facility] 210 [facility] [address] [place] [address] Hardeep Levy MD [address] [place] [address] 06/14/2024 10:45 AM EDT Office Visit [facility] R[facility] [address] [address] Josse Perez DO 3000 [facility] [address] [place] [address] documented as of this encounter Visit Diagnoses Diagnosis Pulmonary emphysema, unspecified emphysema type Atrial fibrillation with rapid ventricular response documented in this encounter Care Teams Yardage Control Operator Forming Relationship Specialty Start Date End Date Hardeep Levy MD [address] [place] [address] PCP - General Family Medicine 09/30/21 documented as of this encounter
--- OUTSIDE RECORDS SUMMARY | 2024-01-15 10:28 | XMS_ITS | Encounter Summary ---
Author Organization [facility] Address [address] [place] [address] Care Team Providers Care Health Policy Analyst Name Role Phone Hardeep Stevens MD Primary Care Provider + Reason for Visit * Reason Comments Medicare Wellness-subsequent Encounter Details Date Type Department Care Team (Late st Contact Info) Description 10/02/2022 10:15 AM EDT Office Visit [facility] [address] [place] [address] Hardeep Stevens MD [address] [place] [address] Need for vaccination (Primary Dx); Pulmonary emphysema, unspecified emphysema type; Hypercholesterolemia; 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; Screening declined by patient Social History Tobacco Use Types Packs/Day Years [...] Sign Reading Time Taken Comments Blood Pressure 140/80 10/02/2022 10:14 AM EDT Pulse 76 10/02/2022 10:14 AM EDT Temperature 36.6 ??C (97.8 ??F) 10/02/2022 10:14 AM E DT Respiratory Rate 20 10/02/2022 10:14 AM EDT Oxygen Saturation 98% 10/02/2022 10:14 AM EDT Inhaled Oxygen Concentration - - Weight 51.4 kg (113 lb 6.4 oz) 10/02/2022 10:14 AM EDT Height 172.7 cm (5' 7.99 ) 10/02/2022 10:14 AM E DT Body Mass Index 17.25 10/02/2022 10:14 AM EDT documented in this encounter Progress Notes * Hardeep Stevens MD - 10/02/2022 10:15 AM EDT The ABCs of the Annual Wellness Visit Subsequent Medicare Wellness Visit Subjective Umang Fernandes is a 67 y.o. male who presents for a Subsequent Medicare Wellness Visit. The following portions of the patient's history were reviewed and updated as appropriate: allergies, current medications, past family history, past medical history, past social history, past surgical history, and problem list. Compared to one year ago, the patient feels his physical health is the same. Compared to one year ago, the patient feels his mental health is the same. Recent Hospitalizations: He was not admitted to the hospital during the last year. Current Medical Providers: Patient Care Team: Hardeep Stevens MD as PCP - General (Family Medicine) Josse Perez DO as Consulting Physician (Rheumatology) Outpatient Medications Prior to Visit Medication Sig Dispense Refill albuterol sulfate HFA 108 (90 Base) MCG/ACT inhaler Inhale 2 puffs Every 4 (Four) Hours As Needed for Wheezing. 18 g 2 leflunomide (ARAVA) 20 MG tablet simvastatin (ZOCOR) 40 MG tablet TAKE 1 TABLET EVERY NIGHT 90 tablet 0 Symbicort 160-4.5 MCG/ACT inhaler USE 2 INHALATIONS TWICE A DAY 30.6 g 0 No facility-administered medications prior to visit. No opioid medication identified on active medication list. I have reviewed chart for other potential high risk medication/s and harmful drug interactions in the elderly. Aspirin is not on active medication list. Aspirin use is not indicated based on review of current medical condition/s. Risk of harm outweighs potential benefits. . 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 ACP discussion was held with the patient during this visit. Patient does not have an advance directive, information provided. Objective Vitals: 10/02/22 1014 BP: 140/80 Pulse: 76 Resp: 20 Temp: 97.8 ??F (36.6 ??C) SpO2: 98% Weight: 51.4 kg (113 lb 6.4 oz) Height: 172.7 cm (67.99 ) PainSc: 0-No pain Estimated body mass index is 17.25 kg/m?? as calculated from the following: Height as of this encounter: 172.7 cm (67.99 ). Weight as of this encounter: 51.4 kg (113 lb 6.4 oz). BMI is below normal parameters (malnutrition). Recommendations: none (medical contraindication) Does the patient have evidence of cognitive impairment? No HEALTH RISK ASSESSMENT Smoking Status: Social History Tobacco Use Smoking Status Every Day Types: Cigarettes Smokeless Tobacco Never Alcohol Consumption: Social History Substance and Sexual Activity Alcohol Use Yes Fall Risk Screen: VINNIE Fall Risk Assessment was completed, and patient is at LOW risk for falls.Assessment completed on:10/02/2022 Depression Screenin10/02/2022 10:16 AM PHQ-2/PHQ-9 Depression Screening Little Interest or Pleasure in Doing Things 0-->not at all Feeling Down, Depressed or Hopeless 0-->not at all PHQ-9: Brief Depression Severity Measure Score 0 Health Habits and Functional and Cognitive Screenin10/02/2022 10:17 AM Functional & Cognitive Status Do you have difficulty preparing food and eating? No Do you have difficulty bathing yourself, getting dressed or grooming yourself? No Do you have difficulty using the toilet? No Do you have difficulty moving around from place to place? No Do you have trouble with steps or getting out of a bed or a chair? No Current Diet Frequent Junk Food Dental Exam Not up to date Eye Exam Not up to date Exercise (times per week) 0 times per week Current Exercises Include No Regular Exercise Do you need help using the phone? No Are you deaf or do you have serious difficulty hearing? No Do you need help to go to places out of walking distance? No Do you need help shopping? No [...] trouble finding someone available to you? No Have you been bothered in the last four weeks by sexual problems? No Do you have difficulty concentrating, remembering or making decisions? No Age-appropriate Screening Schedule: Refer to the list below for future screening recommendations based on patient's age, sex and/or medical conditions. Orders for these recommended tests are listed in the plan section. The patient has been provided with a written plan. Health Maintenance Topic Date Due TDAP/TD VACCINES (1 - Tdap) Never done ZOSTER VACCINE (2 of 3) 08/08/2015 Pneumococcal Vaccine 65+ (2 - PCV) 05/28/2016 HEPATITIS C SCREENING Never done COVID-19 Vaccine (7 - Pfizer series) 03/06/2022 LIPID PANEL 09/30/2022 INFLUENZA VACCINE 11/09/2022 ANNUAL WELLNESS VISIT 10/03/2023 AAA SCREEN (ONE-TIME) Discontinued COLORECTAL CANCER SCREENING Discontinued [facility] Preventative Services Quick Reference Risk Factors Identified During Encounter: Immunizations Discussed/Encouraged: Influenza, Prevnar 20 (Pneumococcal 20- valent conjugate), Shingrix, COVID19, and RSV Tobacco Use/Dependance Risk (use dotphrase .tobaccocessation for documentation) Patient declines smoking cessation counseling Vision Screening Recommended The above risks/problems have been discussed with the patient. Pertinent information has been shared with the patient in the After Visit Summary. Diagnoses and all orders for this visit: 1. Need for vaccination (Primary) - Pneumococcal Conjugate Vaccine 20-Valent (PCV20) 2. Pulmonary emphysema, unspecified emphysema type Comments: Stable. Refill Symbicort for 1 year Orders: - Symbicort 160-4.5 MCG/ACT inhaler; Inhale 2 puffs 2 (Two) Times a Day. Dispense: 3 each; Refill: 3 3. Hypercholesterolemia Comments: Lipid panel ordered. Refilled simvastatin for 1 year Orders: - simvastatin (ZOCOR) 40 MG tablet; Take 1 tablet by mouth Every Night. Dispense: 90 tablet; Refill: 3 - Lipid Panel 4. 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 Cont. Rheumatology f/u every 4 months 5. Screening declined by patient Follow Up: Next Medicare Wellness visit to be scheduled in 1 year. An After Visit Summary and PPPS were made available to the patient. documented in this encounter Plan of Treatment Upcoming Encounters Date Type Department Care Team (Late st Contact Info) Description 02/05/2024 10:15 AM EST Office Visit [facility] [address] [place] [phone] Hardeep Stevens MD [address] [place], [place] [id number] 06/14/2024 10:45 AM EDT Office Visit [facility] [address] [phone] Josse Perez DO [address] [place] [address] [place] [address] [phone] documented as of this encounter Procedures Procedure Name Priority Date/Time Associated Diagnosis Comments LIPID PANEL Routine 10/02/2022 10:37 AM EDT Hypercholesterolemia documented in this encounter Results * (ABNORMAL) Lipid Panel (10/02/2022 10:37 AM EDT) Total Cholesterol 221(H) 0 - 200 mg/dL [facility] Comment: [...] 160-189 mg/dL Very High ?>189 mg/dL Triglycerides 49 0 - 150 mg/dL [facility] HDL Cholesterol 148(H) 40 - 60 mg/dL [facility] VLDL Cholesterol Jorge Alberto 9 5 - 40 mg/dL [facility] LDL Chol Calc (NIH) 64 0 - 100 mg/dL [facility] Blood 10/02/2022 10:3 7 AM EDT 10/02/2022 Narrative [facility] (AMBULATORY) - 10/02/2022 8:08 PM EDT Performed at: ??[address] ??[id number] Safety Deposit Supervisor: Chele De La Cruz MD, Phone: ??[phone] Patient Fasting: ??Y us Hardeep Stevens MD LAB BLOOD ORDERABLES Fin al Result [facility] (AMBULATORY) [address] [place] [address], [place] [phone] [facility] [address] [place] [address], [place] [phone] documented in this encounter Visit Diagnoses Diagnosis Need for vaccination- Primary Need for prophylactic vaccination and inoculation against unspecified single disease Pulmonary emphysema, unspecified emphysema type Hypercholesterolemia Pure hypercholesterolemia 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
[2024-01-15 10:47] LABS: Basophils % 0.7 % (0.1-2.0); Eosinophils % 0.4 % (0.1-12.0); Hematocrit 46.4 % (42.0-52.0); Hemoglobin 15.1 g/dL (14.1-18.0); Lymphocytes # 1.2 K/mm3 (0.7-4.5); Lymphocytes % 25.3 % (10-50); Mean Corpuscular HGB Conc 32.5 g/dL (31.8-35.4); Mean Corpuscular Volume 98.4 fl (80-94); Mean Platelet Volume 7.5 fl (7.4-10.4); Monocytes # 0.4 K/mm3 (0.1-1.0); Monocytes % 8.6 % (1.7-9.3); Neutrophils # 3.2 K/mm3 (1.8-7.8); Neutrophils % 64.9 % (37.0-80.0); Platelet Count 226 K/mm3 (142-424); Red Blood Count 4.72 M/mm3 (4.60-6.20); Red Cell Distribution Width 14.2 % (11.5-17.5); White Blood Count 4.9 K/mm3 (4.8-10.8)
[2024-01-15 11:12] LABS: Alanine Aminotransferase 28 U/L (12-78); Albumin Level 4.1 g/dl (3.5-5.0); Albumin/Globulin Ratio 1.6 (1.1-1.8); Alkaline Phosphatase 96 U/L (38-126); Anion Gap 12.4 mEq/L (5-15); Aspartate Amino Transferase 54 U/L (17-59); Bilirubin,Total 0.8 mg/dl (0.2-1.3); Blood Urea Nitrogen 10 mg/dl (9-20); Calcium 9.7 mg/dl (8.4-10.2); Carbon Dioxide 24 mmol/L (22.0-30.0); Chloride 108 mmol/L (98-107); Estimated Glomerular Filt Rate 112 ml/min (>60); GFR (African American) 136 ML/MIN (>60); Globulin 2.5 g/dL (1.3-3.2); Glucose 69 mg/dl (74-100); Potassium 3.4 mmoL/L (3.5-5.1); Sodium 141 mmol/L (136-145); Total Protein,Serum 6.6 g/dl (6.3-8.2)
[2024-01-15 11:17] LABS: C-Reactive Protein 0.8 mg/L (0-4)
[2024-01-15 11:45] LABS: Erythrocyte Sedimentation Rate 16 mm/hr (0-20)
== END 2024-01-15 23:59 | disposition home or self-care (01) ==
LOC: LAB 10:26
PROVIDERS: PCP Family Medicine; Visit Provider Internal Medicine
DX: Z51.81 Encounter for therapeutic drug level monitoring (principal); M05.9 Rheumatoid arthritis with rheumatoid factor, unspecified; R76.12 Nonspecific reaction to cell mediated immunity measurement of gamma interferon antigen response without active tuberculosis
CPT/HCPCS: 36415; 80053; 85025; 85651; 86140

== ENCOUNTER 2024-06-16 08:48 | Outpatient (CLI) | payer MEDICARE, BC, SELFPAY ==
--- OUTSIDE RECORDS SUMMARY | 2024-06-16 08:51 | XMS_ITS | Encounter Summary ---
Author Name [facility] [place] Organization [facility] [place] Address [address] [place] [address] Support Name Relationship Address Phone MEGHA MAYS Next of Kin [address] [phone] MEGHA MAYS Emergency Contact [address] [phone] Insurance Providers: All historical and current Section Date Range: From patient's date of to the date document was created. This section includes the names of all active insurance providers for the patient. Insurance Provider Type of Coverage Plan Name Start of Policy Coverage End of Policy Coverage Group Number Member ID Insurance Provider's Telephone Number Policy Orosco's Name Patient's Relationship to Policy Orosco BS [place] PREFERRED PROVIDER ORGANIZAT ION (PPO) [employer] [place] Feb 09, 2009 [id number] [phone] [id number] PATIENT [employer] ([id number]) PRESCRIPT ION URMBT RX Feb 09, 2009 [id number] [phone] MAYSRAVI PATIENT Selected Encounter This section includes the information on record at [place] for the Encounter. Date/Time Encounter Type Encounter Description Reason Pro vider Source May 20, 2024 09:11 AM Outpatient Encounter TELEPHONE/MEDICINE IHE Encounter Template Text not used by VA Encounter Notes: All associated encounter notes This section contains the clinical notes associated to the Encounter. Date/Time Encounter Note(s) Provider Source May 20, 2024 09:11 AM ADMINISTRATIVE NOT E: LOCAL TITLE: V9 [facility] ADMINISTRATIVE NOTE STANDARD TITLE: ADMINISTRATIVE NOTE DATE OF NOTE: MAY 20, 2024@09:11 ENTRY DATE: MAY 20, 2024@09:11:51 AUTHOR: NELA,BRAULIO EXP COSIGNER: URGENCY: STATUS: COMPLETED Toxic Exposure Screening: Attempts to contact /caregiver to perform TRISTEN: 1 Contact type: Telephone-left message to call back Unsuccessful attempt to reach via phone to complete Toxic Exposure Screening Reminder in CPRS. HIPAA compliant message left with TRISTEN Contact Information. /namita/ BRAULIO RONDON PHYSICIAN STEEL ERECTOR Signed: 05/20/2024 09:12 BRAULIO RONDON-HERNANDO [facility]
--- OUTSIDE RECORDS SUMMARY | 2024-06-16 08:51 | XMS_ITS | Continuity of Care Document ---
Author Name [facility] Organization [facility] Care Team Providers Care Department Store General Manager Name Role Phone [facility] Unavailable Unavailable Encounters Combined list of: 1) Encounters from [facility] facilities going backup to the last 18 months, not all VA inpatient encounters are included; 2) Encounters from the Department of [facility] [employer] facilities going backup to 280 months. Location Location Details Encounter Type Encounter Number Reason For Visit Attending Provider ADM Date DC Date Status Disposition Source [facility] Outpatient Encounter [id number] 05/20 [place] [facility] Outpatient Encounter [id number] 05/20 [place] [facility]
--- OUTSIDE RECORDS SUMMARY | 2024-06-16 08:51 | XMS_ITS | Encounter Summary ---
Author Name [facility] Organization [facility] [place] Address [address] [place] [id number] Support Name Relationship Address Phone MEGHA MAYS Next of Kin [address] [phone] MEGHA MAYS Emergency Contact [address] [phone] Insurance Providers: All historical and current Section [...] RETIR EE MEDIC [place] Feb 09, 2009 [id number] RAVI MAYS PATIENT [employer] [facility] ([id number]) PRESCRIPT ION URMBT RX Feb 09, 2009 [id number] RAVI MAYS PATIENT Selected Encounter This section includes the information on record at [place] for the Encounter. Date/Time Encounter Type Encounter Description Reason Pro vider Source May 20, 2024 12:00 AM Outpatient Encounter EVENT (HISTORICAL) IHE Encounter Template Text not used by DC
[2024-06-16 09:21] LABS: Basophils # 0.1 K/mm3 (0-0.2); Basophils % 1.4 % (0.1-2.0); Eosinophils # 0.1 Kmm3 (0.0-0.4); Eosinophils % 1.4 % (0.1-12.0); Hematocrit 40.3 % (42.0-52.0); Hemoglobin 13.3 g/dL (14.1-18.0); Immature Granulocytes # 0 10^3uL; Immature Granulocytes % 0 %; Lymphocytes # 1.4 K/mm3 (0.7-4.5); Lymphocytes % 31.2 % (10-50); Mean Corpuscular Hemoglobin 31.1 pg (27.0-31.2); Mean Corpuscular Volume 94.2 fl (80-94); Mean Platelet Volume 9.7 fl (7.4-10.4); Monocytes # 0.6 K/mm3 (0.1-1.0); Monocytes % 13.1 % (1.7-9.3); Neutrophils # 2.3 K/mm3 (1.8-7.8); Neutrophils % 52.9 % (37.0-80.0); Nucleated Red Blood Cells # 0 10^3/uL; Nucleated Red Blood Cells % 0 %; Platelet Count 218 K/mm3 (142-424); Red Blood Count 4.28 M/mm3 (4.60-6.20); Red Cell Distribution Width 13.7 % (11.5-17.5); Red Cell Distribution Width-SD 46.8 fL; White Blood Count 4.4 K/mm3 (4.8-10.8)
[2024-06-16 09:53] LABS: Erythrocyte Sedimentation Rate 16 mm/hr (0-20)
[2024-06-16 09:54] LABS: Alanine Aminotransferase 30 U/L (12-78); Alkaline Phosphatase 125 U/L (38-126); Aspartate Amino Transferase 69 U/L (17-59); Bilirubin,Total 0.8 mg/dl (0.2-1.3); Calcium 9.3 mg/dl (8.4-10.2); Chloride 108 mmol/L (98-107); Glucose 76 mg/dl (74-100); Sodium 140 mmol/L (136-145)
[2024-06-16 09:56] LABS: Albumin Level 3.5 g/dl (3.5-5.0); Albumin/Globulin Ratio 1.4 (1.1-1.8); Blood Urea Nitrogen 6 mg/dl (9-20); Carbon Dioxide 30 mmol/L (22.0-30.0); Estimated Glomerular Filt Rate 112 ml/min (>60); GFR (African American) 135 ML/MIN (>60); Globulin 2.5 g/dL (1.3-3.2)
[2024-06-16 09:59] LABS: C-Reactive Protein 0.7 mg/L (0-4)
== END 2024-06-16 23:59 | disposition home or self-care (01) ==
LOC: LAB 08:49
PROVIDERS: PCP Family Medicine; Visit Provider Internal Medicine
DX: M05.9 Rheumatoid arthritis with rheumatoid factor, unspecified (principal); Z51.81 Encounter for therapeutic drug level monitoring; R76.12 Nonspecific reaction to cell mediated immunity measurement of gamma interferon antigen response without active tuberculosis; M15.0 Primary generalized (osteo)arthritis
CPT/HCPCS: 36415; 80053; 85025; 85651; 86140

== ENCOUNTER 2024-08-31 08:26 | Outpatient (CLI) | payer MEDICARE, BC, SELFPAY ==
--- OUTSIDE RECORDS SUMMARY | 2024-05-20 05:11 | XMS_ITS | Continuity of Care Document ---
Author Name [facility] Organization [facility] Care Team Providers Care Service Delivery Consultant Name Role Phone [facility] Unavailable Unavailable Encounters Combined list of: 1) Encounters from [facility] facilities going backup to the last 18 months, not all VA inpatient encounters are included; 2) Encounters from the Department of [facility] facilities going backup to 280 months. Location Location Details Encounter Type Encounter Number Reason For Visit Attending Provider ADM Date DC Date Status Disposition Source [facility] Outpatient Encounter [id number] 05/20 [place] [facility] Outpatient Encounter [id number] 05/20 [place] [facility]
--- OUTSIDE RECORDS SUMMARY | 2024-08-05 09:45 | XMS_ITS | Encounter Summary ---
Author Organization [facility] Address [address] [place] [address] Care Team Providers Care Event Lighting Specialist Name Role Phone Hardeep Stevens MD Primary Care Provider + Reason for Visit * Reason Comments Follow-up pulmonary emphysema Hyperlipidemia Atrial Fibrillation Encounter Details Date Type Department Care Team (Late st Contact Info) Description 08/05/2024 9:45 AM EDT Office Visit [facility] [address] [place] [address] Hardeep Stevens MD [address] [place] [address] Permanent atrial fibrillation (Primary Dx); Hypercholesterolemia; Pulmonary hypertension; Hypokalemia; Nonrheumatic mitral valve regurgitation; Pulmonary emphysema, unspecified emphysema type; Seropositive rheumatoid arthritis; Alcoholism Social History Tobacco Use Types Packs/Day Years Used Date Smoking Tobacco: Some Days Cigarettes Smokeless Tobacco: Never Tobacco Cessation:Ready to Q uit: No; Counseling Given: Not Answered Alcohol Use Standard Drinks/Week Comments Yes 0 (1 standard drink = 0.6 oz pur e alcohol) BEER, CONSUMED DAILY PHQ-2 Answer Date Recorded Retired PHQ-9: Brief Depression Severity Measure Score 0 10/02/2022 PHQ-2 Answer Date Recorded Patient Health Questionnaire-2 Score 0 08/05/2024 Sex and Gender Information Value Date Recorded Sex Assigned at Not on file Legal Sex Male 11:48 AM EDT Gender Identity Not on file Sexual Orientation Not on file documented as of this encounter Last Filed Vital Signs Vital Sign Reading Time Taken Comments Blood Pressure 150/88 08/05/2024 9:41 AM EDT Pulse 112 08/05/2024 9:41 AM EDT irreg ular Temperature 36.8 C (98.3 F) 08/05/2024 9:41 AM EDT Respiratory Rate 20 08/05/2024 9:41 AM EDT Oxygen Saturation 94% 08/05/2024 9:41 AM EDT Inhaled Oxygen Concentration - - Weight 55.6 kg (122 lb 9.6 oz) 08/05/2024 9:41 A M EDT Height 172.7 cm (5' 7.99 ) 08/05/2024 9:41 AM ED T Body Mass Index 18.65 08/05/2024 9:41 AM EDT documented in this encounter Functional Status documented as of this encounter Progress Notes * Hardeep Stevens MD - 08/05/2024 11:49 AM EDTAssociated Problem(s): Alcoholism Condition is worsening. Patient understands the negative impact his alcohol use has on his life buthas no intention to change and is not interested in any interventions that may help him. I was veryhonest with the patient that I believe some of the new exam findings today, particularly the lower extremity swelling, are indicative of declining health which she accepts the risk of. * Hardeep Stevens MD - 08/05/2024 11:48 AM EDTAssociated Problem(s): Pulmonary hypertension Identified on previous echocardiogram and lower extremity edema would indicate worsening of condition. Edema may also be contributed to by calcium channel chago. * Hardeep Stevens MD - 08/05/2024 11:48 AM EDTAssociated Problem(s): Pulmonary emphysema Stable. Continue generic Symbicort. Recommend flu vaccine and COVID vaccines in the fall * Hardeep Stevens MD - 08/05/2024 11:47 AM EDTAssociated Problem(s): Atrial fibrillation with rapid ventricular response Condition remains stable. Patient refuses anticoagulation of any kind including aspirin 81 mg. Continue diltiazem CD1 180 mg daily. Continue 6-month reassessments. Patient declines cardiology referral. * Hardeep Stevens MD - 08/05/2024 9:45 AM EDT Chief Complaint Patient presents with Follow-up pulmonary emphysema Hyperlipidemia Atrial Fibrillation Subjective Umang Fernandes is a 69 y.o. who presents for chronic care. A-fib. He denies chest pain or palpitations. Over the last 6 months he has had increased lower extremity swelling. Previous echocardiogram last year identified elevated right ventricular systolic pressures as well as hypokinetic right ventricle. He denies any shortness of breath. Rheumatoid arthritis. Follows with Dr. Perez. At last visit his leflunomide was reduced. Patienthad mild elevation in AST and he admits that is likely due to some increased alcohol consumption. Regarding his alcohol consumption he has no intention of cutting back as he uses alcohol to initiate sleep and prevent PTSD related nightmares. When we discussed options of counseling and potential useof prazosin for this he is adamant he does not want to take any more medication. On labs through rheumatology patient was also identified as having hypokalemia which will require some repeat labs. The following portions of the patient's history were reviewed and updated as appropriate: allergies, current medications, past family history, past medical history, past social history, past surgicalhistory, and problem list. Review of Systems Objective Vital Signs: BP 150/88 Pulse 112 Comment: irregular Temp 98.3 ??F (36.8 ??C) Resp 20 Ht 172.7 cm (67.99 ) Wt 55.6 kg (122 lb 9.6 oz) SpO2 94% BMI 18.65 kg/m?? BMI is within normal parameters. No other follow-up for BMI required. Physical Exam Vitals reviewed. Constitutional: Appearance: Normal appearance. HENT: Head: Normocephalic and atraumatic. Right Ear: Tympanic membrane and ear canal normal. Left Ear: Tympanic membrane and ear canal normal. Nose: Nose normal. Mouth/Throat: Mouth: Mucous membranes are moist. Pharynx: Oropharynx is clear. Eyes: Conjunctiva/sclera: Conjunctivae normal. Cardiovascular: Rate and Rhythm: Normal rate. Rhythm irregular. Heart sounds: Normal heart sounds. No murmur heard. Pulmonary: Effort: Pulmonary effort is normal. No respiratory distress. Breath sounds: Normal breath sounds. Musculoskeletal: Cervical back: Normal range of motion and neck supple. No tenderness. Right lower leg: Edema present. Left lower leg: Edema present. Lymphadenopathy: Cervical: No cervical adenopathy. Skin: General: Skin is warm and dry. Neurological: Mental Status: He is alert. Psychiatric: Mood and Affect: Mood normal. Result Review Assessment and Plan Diagnoses and all orders for this visit: 1. Permanent atrial fibrillation (Primary) Assessment & Plan: Condition remains stable. Patient refuses anticoagulation of any kind including aspirin 81 mg. Continue diltiazem CD1 180 mg daily. Continue 6-month reassessments. Patient declines cardiology referral. 2. Hypercholesterolemia Overview: Lipid panel ordered. Refilled simvastatin for 1 year 3. Pulmonary hypertension Assessment & Plan: Identified on previous echocardiogram and lower extremity edema would indicate worsening of condition. Edema may also be contributed to by calcium channel chago. 4. Hypokalemia Comments: Repeat potassium along with magnesium labs will be ordered Orders: - Basic Metabolic Panel - Magnesium 5. Nonrheumatic mitral valve regurgitation 6. Pulmonary emphysema, unspecified emphysema type Overview: Stable. Refill Symbicort for 1 year Assessment & Plan: Stable. Continue generic Symbicort. Recommend flu vaccine and COVID vaccines in the fall 7. Seropositive rheumatoid arthritis 8. Alcoholism Assessment & Plan: Condition is worsening. Patient understands the negative impact his alcohol use has on his life buthas no intention to change and is not interested in any interventions that may help him. I was veryhonest with the patient that I believe some of the new exam findings today, particularly the lower extremity swelling, are indicative of declining health which she accepts the risk of. Follow Up Return in about 6 months (around 02/06/2025) for Medicare Wellness. Patient was given instructions and counseling regarding his condition or for health maintenance advice. Please see specific information pulled into the AVS if appropriate. documented in this encounter Plan of Treatment Upcoming Encounters Date Type Department Care Team (Late st Contact Info) Description 10/18/2024 9:45 AM EDT Office Visit [facility] [address] [place] [address] Leonel LorettaKeraeDENISHA [address] [id number] 02/06/2025 11:45 AM EST Office Visit [facility] [address] [place] [address] Hardeep Stevens MD [address] [place] [address] documented as of this encounter Procedures Procedure Name Priority Date/Time Associated Diagnosis Comments MAGNESIUM Routine 08/05/2024 10:10 AM EDT Hypokalemia BASIC METABOLIC PANEL Routine 08/05/2024 10:10 AM EDT Hypokalemia documented in this encounter Results * (ABNORMAL) Magnesium (08/05/2024 10:10 AM EDT) Magnesium 1.3(L) 1.6 - 2.4 mg/dL [facility] Blood 08/05/2024 10:1 0 AM EDT 08/05/2024 Narrative [facility] ([facility]) - 08/06/2024 3:07 AM EDT Performed at: 01 - [address] [id number] Food And Beverage Service Manager: Chele De La Cruz MD, Phone: [phone] Patient Fasting: Y us Hardeep Stevens MD LAB BLOOD ORDERABLES Fin al Result [facility] ([facility]UL[facility]) [address] [place] [address], [facility] [address] [place] [address], * (ABNORMAL) Basic Metabolic Panel (08/05/2024 10:10 AM EDT) [facility] Glucose 80 65 - 99 mg/dL [facility] BUN 5.0(L) 8.0 - 23.0 mg/dL [facility] Creatinine 0.65(L) 0.76 - 1.27 mg/dL [facility] EGFR Result 102.0 >60.0 mL/min/1.7 3 [facility] Comment: GFR Categories in Chronic Kidney Disease (CKD) GFR Category GFR (mL/min/1.73) Interpretation G1 90 or greater Normal or high (1) G2 60-89 Mild decrease (1) G3a 45-59 Mild to moderate decrease G3b 30-44 Moderate to severe decrease G4 15-29 Severe decrease G5 14 or less Kidney failure (1)In the absence of evidence of kidney disease, neither GFR category G1 or G2 fulfill the criteria for CKD. eGFR calculation 2020 CKD-EPI creatinine equation, which does not include race as a factor BUN/Creatinine Ratio 7.7 7.0 - 25.0 [facility] Sodium 145 136 - 145 mmol/L [facility] Potassium 2.8(L) 3.5 - 5.2 mmol/L [facility] Chloride 102 98 - 107 mmol/L [facility] Total CO2 24.0 22.0 - 29.0 mmol/L [facility] Calcium 9.2 8.6 - 10.5 mg/dL [facility] Blood 08/05/2024 10:1 0 AM EDT 08/05/2024 Narrative [facility] ([facility]) - 08/06/2024 3:07 AM EDT Performed at: [address] [id number] Food And Beverage Service Manager: Chele De La Cruz MD, Phone: [phone] Patient Fasting: Y us Hardeep Stevens MD LAB BLOOD ORDERABLES Fin al Result [facility] (AM[facility]) [address] [place] [address], [place] [phone] [facility] [address] [place] [address], documented in this encounter Visit Diagnoses Diagnosis Permanent atrial fibrillation- Primary Atrial fibrillation Hypercholesterolemia Pure hypercholesterolemia Pulmonary hypertension Other chronic pulmonary heart diseases Hypokalemia Hypopotassemia Nonrheumatic mitral valve regurgitation Pulmonary emphysema, unspecified emphysema type Seropositive rheumatoid arthritis Alcoholism Other and unspecified alcohol dependence, unspecified drinking behavior documented in this encounter Care Teams Event Lighting Specialist Relationship Specialty Start Date End Date Hardeep Stevens MD [address] [place] [address] PCP - General Family Medicine 09/30/21 documented as of this encounter
--- OUTSIDE RECORDS SUMMARY | 2024-08-31 08:29 | XMS_ITS | Clinical Summary ---
Author Organization [facility] Address [address] [place] [address] Phone Care Team Providers Care Grating Machine Operator Name Role Phone Zeeshan Mccrary MD [phone] Conditions or Problems Problem Name Problem Code Onset Date Status Entry Date Provider Comment Standard Description Annotate Nicotine dependence, cigarettes F17.210 (ICD-10-C M) Active Candie Bueno Nicotine dependence, cigarettes, uncomplicated RA with rheumatoid factor, multiple sites M05.79 (ICD-10-C M) Active Candie Bueno Rheumatoid arthritis with rheumatoid factor of multiple sites without organ or systems involvement + 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 (ICD-10-C M) Active Candie Bueno 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 Allergies, Adverse Reactions, Alerts Observed no known allergies at Results Date Name Value Unit Range Flag Description Office Visit: New Pt rm 12 MEDS REVIEW Done Documenta tion of current medications (procedure) ORALTOBACUSE Never Tobacco smoking status CIGARET SMKG yes Tobacco smoking status SMOK STATUS Current every da y smoker Tobacco smoking status Plan of Care No information available. Procedures No information available. Vital Signs Date Name Value Unit Description BMI (Body Mass Index) 16.72 kg/m2 Bod y Mass Index (Ratio) Body Temperature 98.7 [degF] temperat ure E&M BP Diastolic 84 mm[Hg] blood pressu re, diastolic BP Systolic 162 mm[Hg] blood pressur e, systolic Heart Rate 112 /min pulse rate Height 68 [in_us] height E&M Respiratory Rate 16 /min respirat ory rate E&M Weight Measured 110 [lb_av] weight E& M Weight Measured 110 [lb_av] weight E& M Immunizations No information available. Advance Directives Directive Description Start Date LIVING WILL, NOT ON FILE
--- OUTSIDE RECORDS SUMMARY | 2024-08-31 08:30 | XMS_ITS | Encounter Summary ---
Author Organization [facility] Address [address] [place] [id number] Care Team Providers Care Deliver Driver Name Role Phone Hardeep Stevens MD Primary Care Provider + Reason for Visit * Reason Onset Date Comments Med Management 08/11/2024 Encounter Details Date Type Department Care Team (Late st Contact Info) Description 08/11/2024 Telephone [facility] [address] [place] [address] Hardeep Stevens MD [address] [place] [address] Med Management Social History Tobacco Use Types Packs/Day Years Used Date Smoking Tobacco: Some Days Cigarettes Smokeless Tobacco: Never Alcohol Use Standard [...] Telephone Encounter - Jessica Bethea MA - 08/11/2024 11:41 AM EDT Stated [facility] told her this was OTC. Rx sent to . * Telephone Encounter - Brittany Villanueva RegSched Rep - 08/11/2024 10:58 AM EDT Caller: STEPHANIE MAYS Relationship: Emergency Contact Best call back number: [phone] What is the best time to reach you: ANYTIME Who are you requesting to speak with (clinical staff, provider, specific staff member): CLINICAL STAFF What was the call regarding: PATIENT'S SAYS THAT SHE WAS TOLD BY [facility] THAT THEY WILL NOT BE FILLING THE MAGNESIUM OXIDE AND THAT SHE NEEDS TO GET THIS FILLED AT ANOTHER PHARMACY. SHE IS ASKING TO HAVE THE PROVIDER CALL THE MEDICATION IN TO [place] IN [place]. Is it okay if the provider responds through MyChart: NO documented in this encounter Plan of Treatment Upcoming Encounters Date Type Department Care Team (Late st Contact Info) Description 10/18/2024 9:45 AM EDT Office Visit [facility] [address] [address] Gerhard Castaneda APRN [address] [address] 02/06/2025 11:45 AM EST Office Visit [facility] [address] [place] [phone] Hardeep Stevens MD [address] [place] [address] documented as of this encounter Visit Diagnoses Diagnosis Hypomagnesemia Disorders of magnesium metabolism documented in this encounter Care Teams Deliver Driver Relationship Specialty Start Date End Date Hardeep Stevens MD [address] [place] [address] PCP - General Family Medicine 09/30/21 documented as of this encounter
--- OUTSIDE RECORDS SUMMARY | 2024-08-31 08:30 | XMS_ITS | Encounter Summary ---
Author Organization [facility] Address [address] [place] [address] Care Team Providers Care Marketing Instructor Name Role Phone Hardeep Stevens MD Primary Care Provider + Reason for Visit * Reason Onset Date Comments Med Management 08/09/2024 Encounter Details Date Type Department Care Team (Late st Contact Info) Description 08/09/2024 Telephone [facility] [address] [place] [address] Hardeep Stevens MD [address] [place] [address] Med Management Social History Tobacco [...] Miscellaneous Notes * Telephone Encounter - Rosa Boles RegSched Rep - 08/09/2024 8:25 AM EDT Caller: STEPHANIE MAYS Relationship: Emergency Contact Best call back number: [phone] What is the best time to reach you: ANYTIME Who are you requesting to speak with (clinical staff, provider, specific staff member): CLINICAL STAFF What was the call regarding: THE PATIENT'S HAS QUESTIONS ABOUT HIS NEW MEDICATIONS. THEY WERE SENT TO THE MAIL IN PHARMACY AND NOT THE LOCAL ONE. documented in this encounter Plan of Treatment Upcoming Encounters Date Type Department Care Team (Late st Contact Info) Description 10/18/2024 9:45 AM EDT Office Visit [facility] [address] [phone] Gerhard Castaneda APRN [address] [id number] 02/06/2025 11:45 AM EST Office Visit [facility] [address] [place] [phone] Hardeep Stevens MD [address] [place] [address] documented as of this encounter Visit Diagnoses Not on filedocumented in this encounter Care Teams Marketing Instructor Relationship Specialty Start Date End Date Hardeep Stevens MD [address] [place] [address] PCP - General Family Medicine 09/30/21 documented as of this encounter
--- OUTSIDE RECORDS SUMMARY | 2024-08-31 08:30 | XMS_ITS | Clinical Summary ---
Author Organization [facility] Address [address] [place] [address] Care Team Providers Care Gray Mixing Operator Name Role Phone Hardeep Stevens MD Primary Care Provider + Allergies No known active allergies Medications albuterol sulfate HFA 108 (90 Base) MCG/ACT inhalerIndication s:Pulmonary emphysema, unspecified emphysema type Inhale 2 puffs Every 4 (Four) Hours As Needed for Wheezing. 18 g 2 4 Active rosuvastatin (Crestor) 10 MG tabletIndications :Hypercholesterol emia Take 1 tablet by mouth Daily. 90 tablet 3 4 Active budesonide-formot adi (Breyna) 160-4.5 MCG/ACT inhalerIndication s:Pulmonary emphysema, unspecified emphysema type Inhale 2 puffs 2 (Two) Times a Day. 3 each 3 5 Active dilTIAZem CD (CARDIZEM CD) 180 MG 24 hr capsuleIndication s:Permanent atrial fibrillation Take 1 capsule by mouth Daily. 90 capsule 3 5 Active leflunomide (Arava) 10 MG tablet Take 1 tablet by mouth Daily. 30 tablet 5 5 Active potassium chloride (KLOR-CON M20) 20 MEQ CR tabletIndications :Hypokalemia Take 1 tablet by mouth 2 (Two) Times a Day. 60 tablet 5 5 Active magnesium oxide (MAG-OX) 400 MG tabletIndications :Hypomagnesemia Take 1 tablet by mouth Daily. 60 tablet 5 5 Active magnesium oxide (MAG-OX) 400 MG tabletIndications :Hypomagnesemia Take 1 tablet by mouth Daily. 60 tablet 5 5 08/12/19 25 Discontinu ed(Reorder ) Active Problems Problem Noted Date Diagnosed Date Nonrheumatic mitral valve regurgitation 08/06/19 25 Encounter for therapeutic drug monitoring 2023 Assessment & Plan (06/14/2024 10:46 AM EDT): * Arava PO 20 mg/day for RA 1. CBC and CMP every 8-12 weeks to monitor for medication toxicity. 2. No recent serious infections. 3. Refill today Orders: CBC Auto Differential; Future Comprehensive Metabolic Panel; Future C-reactive Protein; Future Sedimentation Rate; Future Assessment & Plan (01/14/2024 2:58 PM EST): * Arava PO 20 mg/day for RA 1. CBC and CMP every 8-12 weeks to monitor for medication toxicity. 2. No recent serious infections. 3. Refill today Orders: C-reactive Protein; Future CBC Auto Differential; Future Comprehensive Metabolic Panel; Future Sedimentation Rate; Future Seropositive rheumatoid arthritis 01/14/2024 Assessment & Plan (06/14/2024 10:46 AM EDT): * Medications/treatments/interventions tried include: Meloxicam, Tylenol, leflunomide [...] Refill medicine today. 6. Prognosis is good. 7. Follow up in 3-4 months 8. We gave him a handout on rheumatoid arthritis to take home and review 9. Some of his pain is degenerative in nature/origin. See below. Orders: CBC Auto Differential; Future Comprehensive Metabolic Panel; Future C-reactive Protein; Future Sedimentation Rate; Future Assessment & Plan (01/14/2024 2:58 PM EST): [...] Future Sedimentation Rate; Future Pulmonary hypertension 10/26/2023 Assessment & Plan (08/05/2024 11:48 AM EDT): Identified on previous echocardiogram and lower extremity edema would indicate worsening of condition. Edema may also be contributed to by calcium channel chago. Alcoholism 09/28/2023 Assessment & Plan (08/05/2024 11:49 AM EDT): Condition is worsening. Patient understands the negative impact his alcohol use has on his life but has no intention to change and is not interested in any interventions that may help him. I was very honest with the patient that I believe some of the new exam findings today, particularly the lower extremity swelling, are indicative of declining health which she accepts the risk of. Atrial fibrillation with rapid ventricular respo nse 09/28/2023 Assessment & Plan (08/05/2024 11:47 AM EDT): Condition remains stable. Patient refuses anticoagulation of any kind including aspirin 81 mg. Continue diltiazem CD1 180 mg daily. Continue 6-month reassessments. Patient declines cardiology referral. Assessment & Plan (09/28/2023 12:27 PM EDT): Condition is newly identified. Emphysema and alcoholism are risk factors for A- fib and patient was made aware. Labs will be drawn to assess thyroid function as well as electrolyte abnormalities considering he has prior hypokalemia. Echocardiogram will be arranged at [facility]. Patient declined referral to cardiology. He would prefer medical management. [id number] 2 score of 1. Patient has no documented history of hypertension Positive QuantiFERON-TB Gold test 08/16/2023 Assessment & Plan (06/14/2024 10:46 AM EDT): His QuantiFERON TB test was positive 03/03/2018. He saw an infectious disease doctor (Dr. Zeeshan Mccrary) and was cleared to take immunosuppressive therapy. In the he was treated for latent TB Orders: CBC Auto Differential; Future Comprehensive Metabolic Panel; Future C-reactive Protein; Future Sedimentation Rate; Future Assessment & Plan (01/14/2024 2:58 PM EST): [...] (09/30/2021): Stable. Refill Symbicort for 1 year Assessment & Plan (08/05/2024 11:48 AM EDT): Stable. Continue generic Symbicort. Recommend flu vaccine and COVID vaccines in the fall Assessment & Plan (02/05/2024 11:07 AM EST): Orders: budesonide-formoterol (Breyna) 160-4.5 MCG/ACT inhaler; Inhale 2 puffs 2 (Two) Times a Day. Hypercholesterolemia 09/30/2021 Overview (09/30/2021): Lipid panel ordered. Refilled simvastatin for 1 year Assessment & Plan (02/05/2024 11:07 AM EST): Orders: rosuvastatin (Crestor) 10 MG tablet; Take 1 tablet by mouth Daily. Resolved Problems Problem Noted Date Diagnosed Date [...] Prognosis is good. He rates his pain 3/10 today. 7. Follow up in 3-4 months 8. Reviewed labs in [facility] from April 20, 2023. These labs are [...] Encounters Date Type Department Care Team Description 08/11/2024 Telephone [facility] [address] [place] [address] Hardeep Stevens MD Med Management 08/09/2024 Telephone [facility] [address] [address] Hardeep Stevens MD Med Management 08/07/2024 Results Follow-Up [facility] [address] [place] [address] Hardeep Stevens MD 08/05/2024 9:45 AM EDT Office Visit [facility] [address] [address] Hardeep Stevens MD Permanent atrial fibrillation (Primary Dx); Hypercholesterolemia; Pulmonary hypertension; Hypokalemia; Nonrheumatic mitral valve regurgitation; Pulmonary emphysema, unspecified emphysema type; Seropositive rheumatoid arthritis; Alcoholism 08/05/2024 Travel 06/16/2024 Results Follow-Up [facility] [address] [phone] Josse Perez, 06/16/2024 Results Follow-Up [facility] [address] [address] Josse Perez, 06/16/2024 Telephone [facility] [address] [address] Josse Perez DO 06/14/2024 10:45 AM EDT Office Visit [facility] [address] [address] Josse Perez DO Seropositive rheumatoid arthritis (Primary Dx); Encounter for therapeutic drug monitoring; Positive QuantiFERON-TB Gold test; Primary osteoarthritis involving multiple joints 06/14/2024 Travel from Last 3 Months Immunizations Immunization Administration Dates Next Due ABRYSVO (RSV, 60+ or pregnan t women 32-36 wks) 01/19/2023 COVID-19 (PFIZER) 12YRS+ (COMIRNATY) 06/04/2020 COVID-19 (PFIZER) Purple Cap Monovalent 12/19/2020,05/30/2020,05/14/2020,05/02 FLUAD TRI 65YR+ 12/11/2023 Flu Vaccine Quad PF >36MO 11/06/2015 Fluad Quad 65+ 10/20/2022,11/04/2021 Fluzone (or Fluarix & Flulav al for [...] Mass Index 18.65 08/05/2024 9:41 AM EDT Plan of Treatment Upcoming Encounters Date Type Department Care Team (Late st Contact Info) Description 10/18/2024 9:45 AM EDT Office Visit [facility] [address] [phone] Gerhard Castaneda APRN [address] [address] 02/06/2025 11:45 AM EST Office Visit [facility] [address] [place] [address] Hardeep Stevens MD [address] [place] [address] Health Maintenance Due Date Last Done Comments TDAP/TD VACCINES (1 - Tdap) 1974 COLOGUARD 2000 COLON CANCER SCREENING 5 YEA R SIGMOIDOSCOPY [address] COLONOGRAPHY 2000 FECAL OCCULT BLOOD TEST 2000 FIT Testing (1 year) 2000 ZOSTER VACCINE (2 of 3) 08/08/2015 06/13/2015 HEPATITIS C SCREENING 09/30/2021 COVID-19 Vaccine (2023-2 5 season) 2024 12/11/2023, 01/12/2023, 11/04/2021, Additional history exists LIPID PANEL 09/27/2024 09/28/2023, 09/10, 09/30/2021 INFLUENZA VACCINE 11/09/2024 12/11/2023, , 11/04/2021, Additional history exists ANNUAL WELLNESS VISIT 02/04/2025 02/05/2024 , 02/05/2024, 10/02/2022, Additional history exists Pneumococcal Vaccine 50+ Completed 10/02/2022, 05/10 AAA SCREEN ONCE Discontinued COLORECTAL CANCER SCREENING Discontinued Procedures Procedure Name Priority Date/Time Associated Diagnosis Comments MAGNESIUM Routine 08/05/2024 10:10 AM EDT Hypokalemia BASIC METABOLIC PANEL Routine 08/05/2024 10:10 AM EDT Hypokalemia SCANNED - LABS 06/16/2024 SCANNED - LABS 06/16/2024 LIPID PANEL Routine 09/28/2023 11:32 AM EDT Hypercholesterolemi a from Last 3 Months or Most Recently Relevant to Health Maintenance Results * (ABNORMAL) Magnesium (08/05/2024 10:10 AM EDT) Magnesium 1.3(L) 1.6 - 2.4 mg/dL [facility] Blood 08/05/2024 10:1 0 AM EDT 08/05/2024 Narrative [facility] ([facility]) - 08/06/2024 3:07 AM EDT Performed at: [address] [id number] Instructor Substitute Cosmetology: Chele De La Cruz MD, Phone: [phone] Patient Fasting: Y us Hardeep Stevens MD LAB BLOOD ORDERABLES Fin al Result [facility] ([facility]) [address] [place] [address], [facility] [address] [place] [address], * (ABNORMAL) Basic Metabolic Panel (08/05/2024 10:10 AM EDT) [facility] Glucose 80 65 - 99 mg/dL [facility] [...] 08/06/2024 3:07 AM EDT Performed at: [address] [id number] Instructor Substitute Cosmetology: Chele De La Cruz MD, Phone: [phone] Patient Fasting: Y Hardeep Stevens MD LAB BLOOD ORDERABLES Fin al Result [facility] ([facility]UL[facility]) [address] [place] [address], [facility] [address] [place] [address], * LABS SCANNED (06/16/2024) Only the most recent of2 resultswithin the time period is included. Josse Perez DO LAB BLOOD ORDERABLES F inal Result * (ABNORMAL) Lipid Panel (09/28/2023 11:32 AM [...] - 09/29/2023 12:11 PM EDT Performed at: 01 - [facility] [address] [place] [id number] Instructor Substitute Cosmetology: Steven Santiago PhD, Phone: [phone] Patient Fasting: Y Hardeep Stevens MD LAB BLOOD ORDERABLES Fin al Result Performing Organization Address [facility] de Phone Number [facility] ([facility]) [address] [place] [address], [facility] [address] [place] [address], from Last 3 Months or Most Recently Relevant to Health Maintenance Insurance MEDICARE A & B [facility] PPO Care Teams Gray Mixing Operator Relationship Specialty Start Date End Date Hardeep Stevens MD [address] [place] [address] PCP - General Family Medicine 09/30/21
--- OUTSIDE RECORDS SUMMARY | 2024-08-31 08:30 | XMS_ITS | Encounter Summary ---
Author Organization [facility] Address [address] [place] [phone] Care Team Providers Care Battery Checker Name Role Phone Hardeep Stevens MD Primary Care Provider + Encounter Details Date Type Department Care Team (Late st Contact Info) Description 08/07/2024 Results Follow-Up [facility] [address] [place] [address] Hardeep Stevens MD [address] [place] [address] Social History Tobacco Use Types Packs/Day Years [...] encounter Miscellaneous Notes * Telephone Encounter - Angela Medina LPN - 08/09/2024 12:21 PM EDT Per potassium and magnesium were sent to mail order pharm. Potassium has already shipped and they are getting magnesium otc. He is supposed to redo labs next week but per the prescription will not get to them until fri or sat. Do you want her to get otc as well? If not and he start on medon Thursday when does he need to repeat labs? documented in this encounter Plan of Treatment Upcoming Encounters Date Type Department Care Team (Late st Contact Info) Description 10/18/2024 9:45 AM EDT Office Visit [facility] [address] [place] [address] Gerhard Castaneda APRN [address] [place] [address] 02/06/2025 11:45 AM EST Office Visit [facility] [address] [place] [phone] Hardeep Stevens MD [address] [place] [address] Scheduled Orders Name Type Priority Associated Diagnoses Orde r Schedule Potassium Lab Routine Hypokalemia Expected: 08/19/2024 (Approximate), Expires: 11/11/2025 Magnesium Lab Routine Hypomagnesemia Expected: 08/19/2024 (Approximate), Expires: 11/11/2025 documented as of this encounter Visit Diagnoses Diagnosis Hypokalemia- Primary Hypopotassemia Hypomagnesemia Disorders of magnesium metabolism documented in this encounter Care Teams Battery Checker Relationship Specialty Start Date End Date Hardeep Stevens MD [address] [place] [address] PCP - General Family Medicine 09/30/21 documented as of this encounter
--- OUTSIDE RECORDS SUMMARY | 2024-08-31 08:30 | XMS_ITS | Encounter Summary ---
Author Organization [facility] Address [address] [place] [address] Care Team Providers Care Wildlife Removal Specialist Name Role Phone Hardeep Stevens MD Primary Care Provider + Encounter Details Date Type Department Care Team (Latest Contact Info) Description 08/05/2024 Travel Social History Tobacco Use Types Packs/Day [...] on file documented as of this encounter Functional Status documented as of this encounter Plan of Treatment Upcoming Encounters Date Type Department Care Team (Late st Contact Info) Description 10/18/2024 9:45 AM EDT Office Visit [facility] [address] [phone] Gerhard Castaneda APRN [address] [phone] 02/06/2025 11:45 AM EST Office Visit [facility] [address] [place] [address] Hardeep Stevens MD [address] [place] [address] documented as of this encounter Visit Diagnoses Not on filedocumented in this encounter Care Teams Wildlife Removal Specialist Relationship Specialty Start Date End Date Hardeep Stevens MD [address] [place] [address] PCP - General Family Medicine 09/30/21 documented as of this encounter
[2024-08-31 10:54] LABS: Potassium 3.7 mmoL/L (3.5-5.1)
[2024-08-31 10:58] LABS: Magnesium 1.3 mg/dl (1.6-2.3)
== END 2024-08-31 23:59 | disposition home or self-care (01) ==
LOC: LAB 08:28
PROVIDERS: PCP Family Medicine; Visit Provider Family Medicine
DX: E87.6 Hypokalemia (principal); E83.42 Hypomagnesemia
CPT/HCPCS: 36415; 83735; 84132

== ENCOUNTER 2024-10-24 08:16 | Outpatient (CLI) | payer MEDICARE, BC, SELFPAY ==
--- OUTSIDE RECORDS SUMMARY | 2024-10-20 11:45 | XMS_ITS | Encounter Summary ---
Author Organization [facility] Address [address] [place] [address] Care Team Providers Care Commercial Banker Name Role Phone Hardeep Stevens MD Primary Care Provider + Reason for Visit * Reason Comments Rheumatoid Arthritis Follow up Osteoarthritis Follow up Encounter Details Date Type Department Care Team (Latest Contact Info) Description 10/20/2024 11:45 AM EDT Office Visit [facility] [address] [address] Josse Perez DO [address] [address] Seropositive rheumatoid arthritis (Primary Dx); High risk medication use; Positive QuantiFERON-TB Gold test; Primary osteoarthritis involving multiple joints; Tobacco use Social History Tobacco Use Types Packs/Day [...] Sign Reading Time Taken Comments Blood Pressure 142/74 10/20/2024 11:37 AM EDT Pulse 63 10/20/2024 11:37 AM EDT Temperature 36.4 C (97.5 F) 10/20/2024 11:37 AM EDT Respiratory Rate - - Oxygen Saturation - - Inhaled Oxygen Concentration - - Weight 48.9 kg (107 lb 14.4 oz) 025 11:37 AM EDT Height 172.7 cm (5' 7.99 ) 10/20/2024 1 1:37 AM EDT Body Mass Index 16.41 10/20/2024 11:37 AM EDT documented in this encounter Patient Instructions * Patient Instructions* Josse Perez, DO - 10/20/2024 11:45 AM EDT Images from the original note were not included. Steps to Quit Smoking Smoking tobacco is the leading cause of preventable . It can affect almost every organ in the body. Smoking puts you and those around you at risk for developing many serious chronic diseases. Quitting smoking can be very challenging. Do not get discouraged if you are not successful the first time. Some people need to make many attempts to quit before they achieve long-term success. Do your best to stick to your quit plan, and talk with your health care provider if you have any questionsor concerns. How do I get ready to quit? When you decide to quit smoking, create a plan to help you succeed. Before you quit: Pick a date to quit. Set a date within the next 2 weeks to give you time to prepare. Write down the reasons why you are quitting. Keep this list in places where you will see it often. Tell your family, friends, and co-workers that you are quitting. Support from people you are close to can make quitting easier. Talk with your health care provider about your options for quitting smoking. Find out what treatment options are covered by your health insurance. Identify people, places, things, and activities that make you want to smoke (triggers). Avoid them. What first steps can I take to quit smoking? Throw away all cigarettes at home, at work, and in your car. Throw away smoking accessories, such as ashtrays and lighters. Clean your car. Make sure to empty the ashtray. Clean your home, including curtains and carpets. What strategies can I use to quit smoking? Talk with your health care provider about combining strategies, such as taking medicines while you are also receiving in-person counseling. Using these two strategies together makes you more likely to succeed in quitting than if you used either strategy on its own. If you are or , talk with your health care provider about finding counseling or other support strategies to quit smoking. Do not take medicine to help you quit smoking unless your health care provider tells you to. Quit right away Quit smoking completely, instead of gradually reducing how much you smoke over a period of time. Stopping smoking right away may be more successful than gradually quitting. Attend in-person counseling to help you build problem-solving skills. You are more likely to succeed in quitting if you attend counseling sessions regularly. Even short sessions of 10 minutes can be effective. Take medicine You may take medicines to help you quit smoking. Some medicines require a prescription. You can also purchase [id number]-[id number] medicines. Medicines may have nicotine in them to replace the nicotine in cigarettes. Medicines may: Help to stop cravings. Help to relieve withdrawal symptoms. Your health care provider may recommend: Nicotine patches, gum, or lozenges. Nicotine inhalers or sprays. Non-nicotine medicine that you take by mouth. Find resources Find resources and support systems that can help you quit smoking and remain smoke-free after you quit. These resources are most helpful when you use them often. They include: Online chats with a counselor. Telephone quitlines. Printed self-help materials. Support groups or group counseling. Text messaging programs. Mobile phone apps or applications. Use apps that can help you stick to your quit plan by providing reminders, tips, and encouragement. Examples of free services include Quit Guide from the CDC and smokefree.gov What can I do to make it easier to quit? Reach out to your family and friends for support and encouragement. Call telephone quitlines, such as 3-055-VIAV-NOW, reach out to support groups, or work with a counselor for support. Ask people who smoke to avoid smoking around you. Avoid places that trigger you to smoke, such as bars, parties, or smoke-break areas at work. Spend time with people who do not smoke. Lessen the stress in your life. Stress can be a smoking trigger for some people. To lessen stress, try: Exercising regularly. Doing deep-breathing exercises. Doing yoga. Meditating. What benefits will I see if I quit smoking? Over time, you should start to see positive results, such as: Improved sense of smell and taste. Decreased coughing and sore throat. Slower heart rate. Lower blood pressure. Clearer and healthier skin. The ability to breathe more easily. Fewer sick days. Summary Quitting smoking can be very challenging. Do not get discouraged if you are not successful the first time. Some people need to make many attempts to quit before they achieve long-term success. When you decide to quit smoking, create a plan to help you succeed. Quit smoking right away, not slowly over a period of time. Find resources and support systems that can help you quit smoking and remain smoke-free after you quit. This information is not intended to replace advice given to you by your health care provider. Make sure you discuss any questions you have with your health care provider. Document Revised: 01/17/2022 Document Reviewed: 01/17/2022 [employer] Patient Education ?? 2023 [employer] * Attachments The following attachments cannot be sent through Care Everywhere. * Osteoarthritis (Polish) documented in this encounter Progress Notes * Josse Perez DO - 10/20/2024 11:45 AM EDTAssociated Problem(s): Seropositive rheumatoid arthritis * Medications/treatments/interventions tried [...] 8. We gave him a handout on osteoarthritis to take home and review 9. Some of his pain is degenerative in nature/origin. See below. Orders: Comprehensive Metabolic Panel CBC Auto Differential C-reactive Protein Sedimentation Rate * Josse Perez, - 10/20/2024 11:45 AM EDTAssociated Problem(s): High risk medication use * Arava PO 10 mg/day for RA 1. CBC and CMP every 8-12 weeks to monitor for medication toxicity. 2. No recent serious infections. 3. Refill today Orders: Comprehensive Metabolic Panel CBC Auto Differential C-reactive Protein Sedimentation Rate * Josse Perez DO - 10/20/2024 11:45 AM EDTAssociated Problem(s): Positive QuantiFERON-TB Gold test His QuantiFERON TB test was positive 03/03/2018. He saw an infectious disease doctor (Dr. Zeeshan Mccrary) and was cleared to take immunosuppressive therapy. In the he was treated for latent TB Orders: Comprehensive Metabolic Panel CBC Auto Differential C-reactive Protein Sedimentation Rate * Josse Perez, - 10/20/2024 11:45 AM EDTAssociated Problem(s): Primary osteoarthritis involving multiple joints Tylenol PRN is ok as directed He has tried taking oral NSAIDS like meloxicam PRN Orders: Comprehensive Metabolic Panel CBC Auto Differential C-reactive Protein Sedimentation Rate * Josse Perez DO - 10/20/2024 11:45 AM EDT Office Follow Up Date: 10/20/2024 Patient Name: Umang Fernnades Date of : 1955 Chief Complaint Patient presents with Rheumatoid Arthritis Follow up Osteoarthritis Follow up History of Present Illness: Umang Fernandes is a 69 y.o. male who is here today for [...] ills. Today he rates his pain as 3/10 in severity. He has 30 minutes/day of morning stiffness. No red or hot joints. No swelling. No back or neck pain. No muscle pain or weakness. No rash. No headaches. No lymphadenopathy. No abnormal bleeding/bruising. No GI or problems. No shortness of breath or chest pain. No sicca symptoms. No numbness. Subjective Review of Systems Constitutional: Negative. HENT: [...] for Wheezing., Disp: 18 g, Rfl: 2 budesonide-formoterol (Breyna) 160-4.5 MCG/ACT inhaler, Inhale 2 puffs 2 (Two) Times a Day., Disp: 3 each, Rfl: 3 dilTIAZem CD (CARDIZEM CD) 180 MG 24 hr capsule, Take 1 capsule by mouth Daily., Disp: 90 capsule, Rfl: 3 leflunomide (Arava) 10 MG tablet, Take 1 tablet by mouth Daily., Disp: 30 tablet, Rfl: 5 magnesium oxide (MAG-OX) 400 MG tablet, Take 1 tablet by mouth 2 (Two) Times a Day., Disp: 60 tablet, Rfl: 5 Magnesium Oxide -Mg Supplement 400 (240 Mg) MG tablet, take 1 tablet by mouth daily, Disp: , Rfl: potassium chloride (KLOR-CON M20) 20 MEQ CR tablet, Take 1 tablet by mouth 2 (Two) Times a Day., Disp: 60 tablet, Rfl: 5 rosuvastatin (Crestor) 10 MG tablet, Take 1 tablet by mouth Daily., Disp: 90 tablet, Rfl: 3 No Known Allergies I have reviewed and updated the patient's chief complaint, history of present illness, review of systems, past medical history, surgical history, family history, social history, medications and allergy list as appropriate. Objective Vitals: 10/20/24 1137 BP: 142/74 BP Location: Left arm Patient Position: Sitting Cuff Size: Adult Pulse: 63 Temp: 97.5 ??F (36.4 ??C) Weight: 48.9 kg (107 lb 14.4 oz) Height: 172.7 cm (67.99 ) PainSc: 3 Body mass index is 16.41 kg/m??. Physical Exam General: Well appearing 69 year old male. Not in distress. He [...] Alert and oriented x 3. Extremities: No cyanosis. + edema both lower legs. Musculoskeletal: No joint swelling. No tenderness to [...] 8. We gave him a handout on osteoarthritis to take home and review 9. Some of his pain is degenerative in nature/origin. See below. Orders: Comprehensive Metabolic Panel CBC Auto Differential C-reactive Protein Sedimentation Rate High risk medication use * Arava PO 10 mg/day for RA 1. CBC and CMP every 8-12 weeks to monitor for medication toxicity. 2. No recent serious infections. 3. 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 He saw an infectious disease doctor (Dr. Zeeshan Mccrary) and was cleared to take immunosuppressive therapy. In the he was treated for latent TB Orders: Comprehensive Metabolic Panel CBC Auto Differential C-reactive Protein Sedimentation Rate Primary osteoarthritis involving multiple joints Tylenol PRN is ok as directed He has tried taking oral NSAIDS like meloxicam PRN Orders: Comprehensive Metabolic Panel CBC Auto Differential C-reactive Protein Sedimentation Rate Tobacco use Encouraged cessation. Follow Up: Return in about 4 months (around 02/19/2025). Josse Perez DO [facility] [place] documented in this encounter Plan of Treatment Upcoming Encounters Date Type Department Care Team (Late st Contact Info) Description 02/06/2025 11:45 AM EST Office Visit [facility] [address] [place] [phone] Hardeep Stevens MD [address] [place] [address] 04/21/2025 10:45 AM EDT Office Visit 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 Ordered: 10/20/2024 C-reactive Protein Lab Routine Seropositive rheumatoid arthritis High risk medication use 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 Ordered: 10/20/2024 Sedimentation Rate Lab Routine Seropositive rheumatoid arthritis High risk medication use 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
--- OUTSIDE RECORDS SUMMARY | 2024-10-24 08:30 | XMS_ITS | Clinical Summary ---
Author Organization [facility] Address [address] [place] [address] Phone Care Team Providers Care Supervisor Covering And Lining Name Role Phone Zeeshan Mccrary MD Conditions or Problems Problem Name Problem Code [...] 1 tablet by mouth daily 5 LEFLUNOMIDE [id number] Korina Albright SYMBICORT 160-4.5 MCG/ACT AERO 2 puffs twice daily 5 BUDESONIDE-FORM OTEROL FUMARATE [id number] Korina Albright SIMVASTATIN 40 MG TABS Take 1 tablet by mouth daily 5 SIMVASTATIN [id number] Korina Albright PREDNISONE 5 MG TABS Take 1 tablet by mouth daily 5 PREDNISONE 13343111714 Korina Albright Medications Administered No information available. [...]
--- OUTSIDE RECORDS SUMMARY | 2024-10-24 08:31 | XMS_ITS | Clinical Summary ---
Author Organization [facility] Address [address] [place] [address] Care Team Providers Care C4 Planner Name Role Phone Hardeep Stevens MD Primary [...] mouth Daily. 90 capsule 3 5 Active potassium chloride (KLOR-CON M20) 20 MEQ CR tabletIndications :Hypokalemia Take 1 tablet by mouth 2 (Two) Times a Day. 60 tablet 5 5 Active magnesium oxide (MAG-OX) 400 MG tabletIndications :Hypomagnesemia Take 1 tablet by mouth 2 (Two) Times a Day. 60 tablet 5 5 Active Magnesium Oxide -Mg Supplement 400 (240 Mg) MG tablet take 1 tablet by mouth daily 5 Active leflunomide (Arava) 10 MG tablet Take 1 tablet by mouth Daily. 30 tablet 5 5 Active leflunomide (Arava) 10 MG tablet Take 1 tablet by mouth Daily. 30 tablet 5 5 10/21/19 25 Discontinu ed(Reorder ) Active Problems Problem Noted Date Diagnosed Date Primary osteoarthritis involving multiple joints 10/20/2024 Assessment & Plan (10/20/2024 12:13 PM EDT): Tylenol PRN is ok as directed He has tried taking oral NSAIDS like meloxicam PRN Orders: Comprehensive Metabolic Panel CBC Auto Differential C-reactive Protein Sedimentation Rate Nonrheumatic mitral valve regurgitation 08/06/19 25 Encounter [...] Seropositive rheumatoid arthritis 01/14/2024 Assessment & Plan (10/20/2024 12:13 PM EDT): * Medications/treatments/interventions tried include: Meloxicam, Tylenol, [...] CBC Auto Differential C-reactive Protein Sedimentation Rate Assessment & Plan (06/14/2024 10:46 AM EDT): [...] prior hypokalemia. Echocardiogram will be arranged at [facility]. Patient declined referral to cardiology. He would prefer medical management. [id number] 2 score of 1. Patient has no documented history of hypertension Positive QuantiFERON-TB Gold test 08/16/2023 Assessment & Plan (10/20/2024 12:13 PM EDT): His QuantiFERON TB test was positive 03/03/2018. He saw an infectious disease doctor (Dr. Zeeshan Mccrary) and was cleared to take immunosuppressive therapy. In the he was treated for latent TB Orders: Comprehensive Metabolic Panel CBC Auto Differential C-reactive Protein Sedimentation Rate Assessment & Plan (06/14/2024 10:46 AM EDT): [...] risk medication use 08/16/2023 Assessment & Plan (10/20/2024 12:17 PM EDT): * Arava PO 10 mg/day for RA 1. CBC and CMP every 8-12 weeks to monitor for medication toxicity. 2. No recent serious infections. 3. Refill today Orders: Comprehensive Metabolic Panel CBC Auto Differential C-reactive Protein Sedimentation Rate Assessment & Plan (08/19/2023 12:37 PM EDT): [...] sites with positive rheumatoid factor 08/16/2023 01/14/20 24 Assessment & Plan (08/20/2023 12:33 PM EDT): [...] in 3-4 months 8. [facility] These labs are [...] wrist with positive rheumatoid factor 09/30/2021 01/14/20 Overview (09/30/2021): Stable. Follow-up with rheumatology every 6 months. Encounters Date Type Department Care Team Description 10/21/2024 Telephone [facility] [address] [place] [phone] Josse Perez DO 10/20/2024 11:45 AM EDT Office Visit [facility] [address] [place] [phone] Josse Perez DO Seropositive rheumatoid arthritis (Primary Dx); High risk medication use; Positive QuantiFERON-TB Gold test; Primary osteoarthritis involving multiple joints; Tobacco use 10/20/2024 Travel 09/08/2024 Refill [facility] [address] [place] [phone] Hardeep Stevens MD Hypomagnesemia 09/01/2024 Results Follow-Up [facility] [address] [place] [phone] Hardeep Stevens MD 08/11/2024 Telephone [facility] [address] [place] [phone] Hardeep Stevens MD Med Management 08/09/2024 Telephone [facility] [address] [phone] Hardeep Stevens MD Med Management 08/07/2024 Results Follow-Up [facility] [address] [place] [address] Hardeep Stevens MD 08/05/2024 9:45 AM EDT Office Visit [facility] [address] [phone] Hardeep Stevens MD Permanent atrial fibrillation (Primary Dx); Hypercholesterolemia; Pulmonary hypertension; Hypokalemia; Nonrheumatic mitral valve regurgitation; Pulmonary emphysema, unspecified emphysema type; Seropositive rheumatoid arthritis; Alcoholism 08/05/2024 Travel from Last 3 Months Immunizations Immunization [...] F) 10/20/2024 11:37 AM EDT Respiratory Rate 20 08/05/2024 9:41 AM EDT Oxygen Saturation 94% 08/05/2024 9:41 AM EDT Inhaled Oxygen Concentration - - Weight 48.9 kg (107 lb 14.4 oz) 025 11:37 AM EDT Height 172.7 cm (5' 7.99 ) 10/20/2024 1 1:37 AM EDT Body Mass Index 16.41 10/20/2024 11:37 AM EDT Plan of Treatment Upcoming Encounters Date Type Department Care Team (Late st Contact Info) Description 02/06/2025 11:45 AM EST Office Visit [facility] [address] [place] [phone] Hardeep Stevens MD [address] [place] [address] 04/21/2025 10:45 AM EDT Office Visit [facility] [address] [address] Josse Perez DO [address] [address] Health Maintenance Due Date Last Done Comments TDAP/TD VACCINES (1 - Tdap) 1974 COLOGUARD 2000 COLON CANCER SCREENING 5 YEA R SIGMOIDOSCOPY [address] COLONOGRAPHY 2000 FECAL OCCULT BLOOD TEST 2000 FIT Testing (1 year) 2000 ZOSTER VACCINE (2 of 3) 08/08/2015 06/13/2015 HEPATITIS C SCREENING 09/30/2021 LIPID PANEL 09/27/2024 09/28/2023, 09/10, 09/30/2021 COVID-19 Vaccine (2023-2 5 season) 2024 12/11/2023, 01/12/2023, 11/04/2021, Additional history exists INFLUENZA VACCINE 11/09/2024 12/11/2023, , 11/04/2021, Additional history exists ANNUAL WELLNESS VISIT 02/04/2025 02/05/2024 , 02/05/2024, 10/02/2022, Additional history exists Pneumococcal Vaccine 50+ Completed 10/02/2022, 05/10 AAA SCREEN ONCE Discontinued COLORECTAL CANCER SCREENING Discontinued Procedures Procedure Name Priority Date/Time Associated Diagnosis Comments SCANNED - LABS 08/31/2024 MAGNESIUM Routine 08/05/2024 10:10 AM EDT Hypokalemia BASIC METABOLIC PANEL Routine 08/05/2024 10:10 AM EDT Hypokalemia LIPID PANEL Routine 09/28/2023 11:32 AM EDT Hypercholesterolemi a from Last 3 Months or Most Recently Relevant to Health Maintenance Results * LABS SCANNED (08/31/2024) us Hardeep Stevens MD LAB BLOOD ORDERABLES [facility] al Result * (ABNORMAL) Magnesium (08/05/2024 10:10 AM EDT) Magnesium 1.3(L) 1.6 - 2.4 mg/dL [facility] Blood 08/05/2024 10:1 0 AM EDT 08/05/2024 Narrative [facility] ([facility]BULATORY) - 08/06/2024 3:07 AM EDT Performed at: [address] [place] [id number] Conservation Officer: Chele De La Cruz MD, Phone: [phone] Patient Fasting: Y us Hardeep Stevens MD LAB BLOOD ORDERABLES Fin al Result [facility] (AMBULATORY) [address] [place] [address], [place] [phone] [facility] [address] [place] [address], [place] [phone] * (ABNORMAL) Basic Metabolic Panel (08/05/2024 10:10 AM EDT) [facility] Glucose 80 65 - 99 mg/dL [facility] [...] - 08/06/2024 3:07 AM EDT Performed at: [address] [place] [address] [id number] Conservation Officer: Chele De La Cruz MD, Phone: [phone] Patient Fasting: Y Hardeep Stevens MD LAB BLOOD ORDERABLES Fin al Result Performing Organization Address City/[facility]/ZIP Co de Phone Number [facility] (AMBULATORY) [address] [place] [address], [place] [phone] [facility] [address] [place] [address], [place] [phone] * (ABNORMAL) Lipid Panel (09/28/2023 11:32 AM EDT) [facility] Total Cholesterol 209(H) 100 - 199 mg/dL [...] 12:11 PM EDT Performed at: 01 - [facility] [address] [place] [id number] Conservation Officer: Steven Santiago PhD, Phone: [phone] Patient Fasting: Y Hardeep Stevens MD LAB BLOOD ORDERABLES Fin al Result Performing Organization Address [facility] Co de Phone Number [facility] (AMBULATORY) [address] [place] [address], [place] [phone] [facility] [address] [place] [address], [place] [phone] from Last 3 Months or Most Recently Relevant to Health Maintenance Insurance MEDICARE A & B [facility] PPO Care Teams C4 Planner Relationship Specialty Start Date End Date Hardeep Stevens MD [address] [place] [address] PCP - General Family Medicine 09/30/21
--- OUTSIDE RECORDS SUMMARY | 2024-10-24 08:31 | XMS_ITS | Encounter Summary ---
Author Organization [facility] Address [address] [place] [address] Care Team Providers Care Ham Passer Name Role Phone Hardeep Stevens MD Primary Care Provider + Reason for Visit * Reason Onset Date Comments Med Management 08/09/2024 Encounter Details Date Type Department Care Team (Late st Contact Info) Description 08/09/2024 Telephone [facility] [address] [place] [address] Hardeep Stevens MD [address] [place] [address] Med Management Social History Tobacco [...] Relationship: Emergency Contact Best call back number: [phone] What is the best time to reach [...] Description 02/06/2025 11:45 AM EST Office Visit [facility] [address] [place] [address] Hardeep Stevens MD [address] [place] [address] 04/21/2025 10:45 AM EDT Office Visit [facility] [address] [phone] Josse Perez DO [address] [address] documented as of this encounter Visit Diagnoses Not on filedocumented in this encounter Care Teams Ham Passer Relationship Specialty Start Date End Date Hardeep Stevens MD [address] [place] [address] PCP - General Family Medicine 09/30/21 documented as of this encounter
--- OUTSIDE RECORDS SUMMARY | 2024-10-24 08:31 | XMS_ITS | Encounter Summary ---
Author Organization [facility] Address [address] [place] [address] Care Team Providers Care Waiver Analyst Name Role Phone Hardeep Levy MD Primary Care Provider + Reason for Visit * Reason Onset Date Comments Med Refill 09/08/2024 Encounter Details Date Type Department Care Team (Late st Contact Info) Description 09/08/2024 Refill [facility] [address] [place] [address] Hardeep Levy MD [address] [place] [address] Hypomagnesemia Social History Tobacco Use Types Packs/Day Years [...] encounter Miscellaneous Notes * Telephone Encounter - Yuly Manzo RegSched Rep - 09/08/2024 8:33 AM EDT Caller: STEPHANIE MAYS Relationship: Emergency Contact Best call back number: [phone] Requested Prescriptions: Requested Prescriptions Pending Prescriptions Disp Refills magnesium oxide (MAG-OX) 400 MG tablet 60 tablet 5 Sig: Take 1 tablet by mouth 2 (Two) Times a Day. Pharmacy where request should be sent: [id number] - [place] - [address] AT [place] [address] [address] - [phone] - [phone] FX Last office visit with prescribing clinician: 08/05/2024 Last telemedicine visit with prescribing clinician: Visit date not found Next office visit with prescribing clinician: 02/06/2025 Additional details provided by patient: PATIENTS STATES DR. LEVY CHANGED THIS MEDICATION TO TWICE A DAY AND THE PHARMACY IS NEEDING AN UPDATED SCRIPT. Does the patient have less than a 3 day supply: [] Yes [x] No Would you like a call back once the refill request has been completed: [] Yes [x] No If the office needs to give you a call back, can they leave a voicemail: [] Yes [x] No Javier Chan 09/08/24 08:33 EDT documented in this encounter Plan of Treatment Upcoming Encounters Date Type Department Care Team (Late st Contact Info) Description 02/06/2025 11:45 AM EST Office Visit [facility] [address] [place] [address] Hardeep Levy MD [address] [place], [place] [id number] 04/21/2025 10:45 AM EDT Office Visit [facility] [address] [address] Josse Perez DO [address] [id number] documented as of this encounter Visit Diagnoses Diagnosis Hypomagnesemia Disorders of magnesium metabolism documented in this encounter Care Teams Waiver Analyst Relationship Specialty Start Date End Date Hardeep Levy MD [address] [place] [address] PCP - General Family Medicine 09/30/21 documented as of this encounter
--- OUTSIDE RECORDS SUMMARY | 2024-10-24 08:31 | XMS_ITS | Encounter Summary ---
Author Organization [facility] Address [address] [place] [address] Care Team Providers Care Stock Roller Name Role Phone Hardeep Stevens MD Primary Care Provider + Encounter Details Date Type Department Care Team (Late st Contact Info) Description 09/01/2024 Results Follow-Up [facility] [address] [place] [address] Hardeep Stevens MD [address] [place] [address] Social History Tobacco Use Types [...] Description 02/06/2025 11:45 AM EST Office Visit [facility] [address] [place] [address] Hardeep Stevens MD [address] [place] [address] 04/21/2025 10:45 AM EDT Office Visit [facility] [address] [address] Josse Perez DO [address] [id number] documented as of this encounter Visit Diagnoses Diagnosis Hypomagnesemia Disorders of magnesium metabolism documented in this encounter Care Teams Stock Roller Relationship Specialty Start Date End Date Hardeep Stevens MD [address] [place] [address] PCP - General Family Medicine 09/30/21 documented as of this encounter
--- OUTSIDE RECORDS SUMMARY | 2024-10-24 08:31 | XMS_ITS | Encounter Summary ---
Author Organization [facility] Address [address] [place] [id number] Care Team Providers Care Surveillance Sensor Officer Name Role Phone Hardeep Stevens MD Primary Care Provider + Encounter Details Date Type Department Care Team (Latest Contact Info) Description 10/20/2024 Travel Social History Tobacco Use Types Packs/Day [...] Description 02/06/2025 11:45 AM EST Office Visit [facility] [address] [place] [address] Hardeep Stevens MD [address] [place] [address] 04/21/2025 10:45 AM EDT Office Visit [facility] [address] [phone] Josse Perez DO [address] [id number] documented as of this encounter Visit Diagnoses Not on filedocumented in this encounter Care Teams Surveillance Sensor Officer Relationship Specialty Start Date End Date Hardeep Stevens MD [address] [facility] [place] [address] PCP - General Family Medicine 09/30/21 documented as of this encounter
--- OUTSIDE RECORDS SUMMARY | 2024-10-24 08:31 | XMS_ITS | Encounter Summary ---
Author Organization [facility] Address [address] [place] [id number] Care Team Providers Care Etl Bi Developer Name Role Phone Hardeep Stevens MD Primary Care Provider + Encounter Details Date Type Department Care Team (Late st Contact Info) Description 10/21/2024 Telephone [facility] [address] [facility] [address] [place] [address] Josse Perez DO [address] [address] Social History Tobacco Use Types Packs/Day Years [...] encounter Miscellaneous Notes * Telephone Encounter - Bo Jarvis RegSched Rep - 10/21/2024 9:04 AM EDT Faxed signed order over to [facility]. Called Mihaela back to inform. She said that the patient was going to come back on Thursday to complete the labs. * Telephone Encounter - Bo Jarvis RegSched Rep - 10/21/2024 8:36 AM EDT Mihaela from [facility] called needed a signature on the patient's labs orders. Patient is currently at the facility. Phone number is [phone] ext [phone] Fax number is [phone]. documented in this encounter Plan of Treatment Upcoming Encounters Date Type Department Care Team (Late st Contact Info) Description 02/06/2025 11:45 AM EST Office Visit [facility] [address] [place] [phone] Hardeep Stevens MD [address] [place] [address] 04/21/2025 10:45 AM EDT Office Visit [facility] [address] [address] Josse Perez DO [address] [address] documented as of this encounter Visit Diagnoses Not on filedocumented in this encounter Care Teams Etl Bi Developer Relationship Specialty Start Date End Date Hardeep Stevens MD [address] [place] [address] PCP - General Family Medicine 09/30/21 documented as of this encounter
[2024-10-24 08:50] LABS: Hematocrit 40.5 % (42.0-52.0); Hemoglobin 13.4 g/dL (14.1-18.0); Immature Granulocytes % 0.2 %; Mean Corpuscular HGB Conc 33.1 g/dL (31.8-35.4); Mean Corpuscular Hemoglobin 31.5 pg (27.0-31.2); Mean Corpuscular Volume 95.3 fl (80-94); Nucleated Red Blood Cells % 0 %; Platelet Count 204 K/mm3 (142-424); Red Blood Count 4.25 M/mm3 (4.60-6.20); Red Cell Distribution Width-SD 46.5 fL; White Blood Count 5.8 K/mm3 (4.8-10.8)
[2024-10-24 10:08] LABS: Alanine Aminotransferase 25 U/L (12-78); Albumin Level 3.7 g/dl (3.5-5.0); Albumin/Globulin Ratio 1.4 (1.1-1.8); Alkaline Phosphatase 118 U/L (38-126); Anion Gap 8.7 mEq/L (5-15); Aspartate Amino Transferase 66 U/L (17-59); Bilirubin,Total 0.7 mg/dl (0.2-1.3); Blood Urea Nitrogen 5 mg/dl (9-20); Calcium 9.0 mg/dl (8.4-10.2); Carbon Dioxide 25 mmol/L (22.0-30.0); Chloride 109 mmol/L (98-107); Creatinine,Serum 0.70 mg/dl (0.66-1.25); Estimated Glomerular Filt Rate 112 ml/min (>60); GFR (African American) 135 ML/MIN (>60); Globulin 2.7 g/dL (1.3-3.2); Glucose 74 mg/dl (74-100); Potassium 3.7 mmoL/L (3.5-5.1); Sodium 139 mmol/L (136-145); Total Protein,Serum 6.4 g/dl (6.3-8.2)
[2024-10-24 10:14] LABS: C-Reactive Protein 1.0 mg/L (0-4)
== END 2024-10-24 23:59 | disposition home or self-care (01) ==
LOC: LAB 08:17
PROVIDERS: PCP Family Medicine; Visit Provider Internal Medicine
DX: M05.9 Rheumatoid arthritis with rheumatoid factor, unspecified (principal); M15.0 Primary generalized (osteo)arthritis; R76.12 Nonspecific reaction to cell mediated immunity measurement of gamma interferon antigen response without active tuberculosis; Z79.899 Other long term (current) drug therapy
CPT/HCPCS: 36415; 80053; 85025; 85651; 86140